=== PATIENT | female | born 1945 | race Caucasian/White ===

== ENCOUNTER 2017-05-28 11:00 | Outpatient (CLI) | payer MEDICARE, BC ==
--- NOTE | 2017-05-28 13:25 | MMO ---
BILATERAL SCREENING MAMMOGRAM: Date: 05/28/17 COMPARISON: 05/09/16, 05/03/15, and 03/17/14. HISTORY: Screening mammography. FINDINGS: This patient's mammogram was interpreted with the assistance of computer-aided detection. There are scattered fibroglandular densities noted bilaterally. There are benign calcifications noted bilaterally. There is a round mass in the upper outer aspect of the left breast measuring in 9-10 mm range, interm ediate depth. This is slightly enlarged when compared to study in 2015 at which time it measured in t he 7-8 mm range. At that time, a benign simple cyst was confirmed with ultrasound. IMPRESSION: BIRADS 2: Benign Finding(s) Annual screening mammography recommended. POS: SONIA
== END 2017-05-28 11:01 | disposition home or self-care (01) ==
LOC: MAMMO 11:00
PROVIDERS: ATTEND Obstetrics & Gynecology
DX: Z12.31 Encounter for screening mammogram for malignant neoplasm of breast (principal)
CPT/HCPCS: 77067; G0202

== ENCOUNTER 2017-09-15 09:03 | Emergency (ER) | payer BC, MEDICARE, OTHER, SELFPAY ==
[2017-09-15] MEDS ORDERED: Ketorolac Tromethamine 30 MG/ML VIAL ONE (10:25)
== END 2017-09-15 10:35 | disposition home or self-care (01) ==
LOC: ERS 09:03
DX: M62.830 Muscle spasm of back (principal); I10 Essential (primary) hypertension; E11.9 Type 2 diabetes mellitus without complications; V89.2XXA Person injured in unspecified motor-vehicle accident, traffic, initial encounter; W22.10XA Striking against or struck by unspecified automobile airbag, initial encounter
CPT/HCPCS: 96372; J1885

== ENCOUNTER 2017-09-16 12:03 | Outpatient (CLI) | payer MEDICARE, BC ==
[~2017-09-16 12:03] MED LIST: Iopamidol 370 76% 100 ML VIAL ONE
== END 2017-09-16 12:04 | disposition home or self-care (01) ==
LOC: BICCT 12:03
PROVIDERS: ATTEND Family Medicine
DX: R10.32 Left lower quadrant pain (principal); R50.9 Fever, unspecified; I70.90 Unspecified atherosclerosis
CPT/HCPCS: 74177

== ENCOUNTER 2018-07-08 10:02 | Outpatient (CLI) | payer MEDICARE, BC ==
--- NOTE | 2018-07-08 11:09 | BD ---
BONE DENSITOMETRY USING DEXA: Date: 07/08/18 HISTORY: Postmenopausal screening for osteoporosis. FINDINGS: Lumbar Spine: BMD (g/cm2) L1 1.062 T-Score: 0.7 Z-Score: 2.6 L2 1.119 T-Score: 0.8 Z-Score: 3.0 L3 1.196 T-Score: 1.0 Z-Score: 3.3 L4 1.137 T-Score: 0.7 Z-Score: 3.1 L1-L4 1.130 T-Score: 0.8 Z-Score: 3.0 Femoral Neck: 0.690 T-Score: -1.4 Z-Score: 0.5 Total Femur: 0.885 T-Score: -0.5 Z-Score: 1.2 The 10 year fracture risk for a major osteoporotic fracture is 9.6% and for a hip fracture is 1.4%. There has been interval reduction of 1.6% in the bone mineral density of the lumbar spine since 01/05. IMPRESSION: Osteopenia. POS: OFF
== END 2018-07-08 10:03 | disposition home or self-care (01) ==
LOC: BICMAMMO 10:02
PROVIDERS: ATTEND Obstetrics & Gynecology
DX: Z12.31 Encounter for screening mammogram for malignant neoplasm of breast (principal); Z13.820 Encounter for screening for osteoporosis; M85.859 Other specified disorders of bone density and structure, unspecified thigh; Z78.0 Asymptomatic menopausal state; Z80.3 Family history of malignant neoplasm of breast
CPT/HCPCS: 77063; 77067; 77080

== ENCOUNTER 2018-07-28 19:30 | Outpatient (CLI) | payer MEDICARE, BC | END 2018-07-28 19:31 | disposition home or self-care (01) | LOC: SLEEPLAB 19:30 | PROVIDERS: ATTEND Family Medicine | DX: G47.33 Obstructive sleep apnea (adult) (pediatric) (principal); R53.83 Other fatigue; R09.89 Other specified symptoms and signs involving the circulatory and respiratory systems; G31.84 Mild cognitive impairment of uncertain or unknown etiology; E11.9 Type 2 diabetes mellitus without complications; R06.83 Snoring; G47.00 Insomnia, unspecified; I10 Essential (primary) hypertension; F41.8 Other specified anxiety disorders; G47.10 Hypersomnia, unspecified; D50.0 Iron deficiency anemia secondary to blood loss (chronic); G47.61 Periodic limb movement disorder; E66.9 Obesity, unspecified; Z68.33 Body mass index [BMI] 33.0-33.9, adult | CPT/HCPCS: 95810 ==

== ENCOUNTER 2019-04-25 16:20 | Outpatient (CLI) | payer MEDICARE, BC ==
--- NOTE | 2019-04-25 16:41 | RAD ---
2 views chest: 04/25/2019 COMPARISON: None HISTORY: Cough FINDINGS: Heart and mediastinal contours appear grossly unremarkable. No pneumothorax or pleural flui d. No focal consolidation or alveolar edema. IMPRESSION: No acute findings.
== END 2019-04-25 16:21 | disposition home or self-care (01) ==
LOC: BICRAD 16:20
PROVIDERS: ATTEND Physician Assistant
DX: R05 Cough (principal)
CPT/HCPCS: 36415; 71046; 80048; 83036

== ENCOUNTER 2019-07-01 12:28 | Outpatient (CLI) | payer MEDICARE, BC ==
--- NOTE | 2019-07-01 13:06 | RAD ---
EXAM: XR Hip Lt 2-3 View PROVIDED CLINICAL HISTORY: Pain status post injury COMPARISON: 08/14/2014 FINDINGS: Postoperative changes of left total hip arthroplasty are demonstrated without evidence for hardware l oosening or migration. No evidence for fracture or other acute osseous abnormality. If there is persistent clinical concern, conservative management and follow-up imaging advised. IMPRESSION: As above.
--- NOTE | 2019-07-01 13:07 | RAD ---
LEFT SHOULDER THREE VIEWS: HISTORY: Fall last evening with shoulder pain. FINDINGS: The AC joint is normally aligned. Degenerative changes at the AC joint are noted with spurring. The h umeral head appears normally positioned. No fracture or acute dislocation identified. IMPRESSION: No acute findings. POS: SONIA
== END 2019-07-01 12:29 | disposition home or self-care (01) ==
LOC: BICRAD 12:28
PROVIDERS: ATTEND Nurse Practitioner Family
DX: M25.512 Pain in left shoulder (principal); M25.552 Pain in left hip; Z96.642 Presence of left artificial hip joint

== ENCOUNTER 2020-06-03 15:08 | Inpatient (IN) | payer MEDICARE, BC ==
[2020-06-03 15:52] LABS: #Basophils 0.1 thou/uL (0.0-0.2); #Eosinphils 0.1 thou/uL (0.0-0.7); #Lymphocytes 1.6 thou/uL (1.20-3.40); #Monocytes 0.7 thou/uL (0.11-0.59); #Neutrophils 5.3 thou/uL (1.40-6.50); %Basophils 0.9 % (0.0-1.0); %Eosinophils 1.2 % (0.0-10.0); %Monocytes 8.5 % (0.0-10.0); %Neutrophils 68.4 % (42.0-75.0); Hemoglobin 13.1 g/dL (12.0-16.0); Mean Corpuscular HGB CONC 34.5 g/dL (32.0-36.0); Mean Corpuscular Hemoglobin 36.1 pg (27.0-31.0); Mean Platelet Volume 8.8 fL (7.4-10.4); Platelet Count 220 thou/uL (130-400); RBC Distribution Width 13.5 % (11.5-14.5); Red Blood Cell (RBC) Count 3.63 mill/uL (4.20-5.40); White Blood Cell (WBC) Count 7.8 thou/uL (4.8-10.8)
--- NOTE | 2020-06-03 15:55 | RAD ---
Portable frontal chest radiograph: 06/03/2020 COMPARISON: 04/25/2019 HISTORY: Weakness, shortness of breath FINDINGS: The cardiac silhouette appears enlarged. No pneumothorax or pleural fluid is seen. There is no focal consolidation or alveolar edema. IMPRESSION: No acute findings.
[2020-06-03 16:11] LABS: MDiff Complete? YES; Macrocytosis SLIGHT = 6-15 cells (100X) (0-5/hpf); Platelet Morphology Comment Appears Adequate; Polychromasia SLIGHT = 2-3 cells (100X) (0-2/hpf)
[2020-06-03 16:17] LABS: ALT (SGPT) 23 U/L (8-55); AST (SGOT) 34 U/L (5-34); Albumin 3.8 g/dL (3.4-4.8); Alkaline Phosphatase 82 U/L (40-110); Anion Gap 18 mmol/L (10-20); BUN (Urea Nitrogen) 17 mg/dL (9.8-20.1); Bilirubin, Total 0.9 mg/dL (0.2-1.2); Calc. Creatinine Clearance 0 mL/min (70-130); Calcium 8.8 mg/dL (7.8-10.44); Carbon Dioxide 23 mmol/L (23-31); Chloride 101 mmol/L (98-107); Estimated GFR-MDRD 33; Globulin 2.6 g/dL (2.4-3.5); Glucose 249 mg/dL (83-110); Potassium 4.3 mmol/L (3.5-5.1); Protein, Total 6.4 g/dL (6.0-8.3); Sodium 138 mmol/L (136-145)
[2020-06-03] MEDS ORDERED: Cyanocobalamin 1000 MCG/ML VIAL IM SCH (19:00)
[2020-06-03] MEDS ORDERED: Magnesium Sulfate 4 GM in Sodium Chloride 0.9% 250 ML 250 ML IVPB SCH (19:15)
[2020-06-03 19:40] LABS: Troponin I 0.015 ng/mL (< 0.028)
--- NOTE | 2020-06-03 20:25 | PDOC.HHP ---
Hospitalist HPI - History of Present Illness SOB History of Present Illness: Patient is a 75-year-old female with paroxysmal atrial fibrillation on anticoagulation, hypertension and congestive heart failure on diuretics presented to the emergency room with worsening shortness of breath over the past 3 weeks. The shortness of breath got worse over the past 24 hours for which she presented to the emergency room. Patient normally follows cardiology Dr. Tim Serna. She recently had an echocardiogram and a stress test which were normal per patient report. She used to be on Lasix 40 mg daily that was reduced to 40 mg alternating with 20 mg daily. The shortness of breath is worse on minimal exertion. She denies significant orthopnea. No cough or wheezing reported. She is unable to complete her activities of daily living due to worsening shortness of breath. Over the past 12 to 24 hours her shortness of breath got worse for which she presented to the emergency room. In the emergency room she was found to have bradycardia with heart rate in 40s. Past Medical History Paroxysmal atrial fibrillation Hypertension - 2001. Type 2 diabetes mellitus without complications - 2001. Shingles. Hypercholesterolemia. Torn ligament in shoulder. Impingement syndrome of right shoulder. DJD (degenerative joint disease) of hip. Urge incontinence. Trochanteric bursitis of left hip. Cervical sprain, initial encounter. Major depressive disorder, single episode, unspecified. Fall on 06/30/2019. Surgical History Appendectomy 1964 D&C 1971 Hysterectomy 1990 Breast biopsy (bilateral) 1970, 1972, 1998 Cataract surgery 2013 Lt. Hip Replacement 08/2014 Lt. 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 Brother - Hypertension., Diabetes, Hypertension Son(s): alive, Younger son - hemochromatosis. Paternal Grand Mother: , Diabetes 1 brother(s) , 1 sister(s) . 2 son(s) - healthy. Social History [employer]: Smoking Are you a: Non-Smoker No Alcohol Use: None No Drugs Use: None Living situation Lives alone. Occupation: Retired. Marital status: . Children: Yes, 2, Boy(s). Caffeine use: 2-3 cups Coffee. Full code. Makes her own decision with the help of her family Allergies N.K.Janette.A. ED Course: VITAL SIGNS Sun Jun 03, 2020 15:09 SEVEN Degroot, Ondina BP: 133/72, Pulse: 90, Resp: 16, Temp: 98.8 (Oral), Pain: 0, O2 sat: 98 on (Room Air), Time: 06/03/2020 15:09. Hospitalist ROS - Review of Systems Constitutional: denies: fever, chills, sweats, weakness, malaise, other Gastrointestinal: denies: nausea, vomiting, abdominal pain, diarrhea, constipation, melena, hematochezia, other Genitourinary: denies: dysuria, frequency, incontinence, hematuria, retention, other All other systems reviewed; all pertinent +/- noted in HPI/Subj - Medication Medications: Current Medications from PCP records-to be verified Joan Aspirin EC Low Dose(Aspirin) 81 MG Tablet Delayed Release 1 tablet Orally Once a day Amlodipine Besylate 10 mg Tablet 1 tablet Orally once a day Triamterene-HCTZ 37.5-25 MG Tablet 1 tablet Orally once a day Atenolol 50 MG Tablet 1 tablet Orally twice a day Ramipril 10 mg Capsule 1 capsule Orally twice a day Insulin Pen Needle 30G X 8 MM Miscellaneous as directed subcutaneously once a day, Notes: may substitute size/gauge based on availability Ferrous Sulfate 324 (65 Fe) MG Tablet Delayed Release 1 tablet Orally Once a day MetFORMIN HCl ER 500 MG Tablet Extended Release 24 Hour 2 tablet with meal Orally twice a day Toujeo SoloStar(Insulin Glargine (1 Unit Dial)) 300 UNIT/ML Solution Pen- injector 20 units Subcutaneous once a day Atorvastatin Calcium 80 MG Tablet 1 tablet Orally Once a day Glimepiride 4 MG Tablet 1 tablet with breakfast or the first main meal of the day Orally Once a day Magnesium 250 MG Tablet 1 tablet with a meal Orally Once a day Allergies No Known Allergies Allergy (Verified 08/08/14 12:57) - Exam General Appearance: NAD (Addressed), awake alert Eye: PERRL ENT: normocephalic atraumatic, no oropharyngeal lesions Neck: supple, symmetric, no JVD, no thyromegaly Heart: RRR, no gallops Respiratory: CTAB, normal chest expansion, no tachypnea, rales (At bases), rhonchi (Add basis) Gastrointestinal: soft, non-tender, normal bowel sounds, no guarding, no rigidity Extremities: no cyanosis, 1+ LE edema Skin: normal turgor, no lesions Neurological: cranial nerve grossly intact, normal sensation to touch Musculoskeletal: normal tone, normal strength, no muscle wasting Psychiatric: normal affect, A&O x 3 Hospitalist Results - Labs Result Diagrams: 06/03/20 15:34 06/03/20 15:34 Lab results: WBC 7.8 thou/uL (4.8-10.8) 06/03/20 15:34 Hgb 13.1 g/dL (12.0-16.0) 06/03/20 15:34 Hct 37.9 % (36.0-47.0) 06/03/20 15:34 MCV 105.0 fL (78.0-98.0) H 06/03/20 15:34 Plt Count 220 thou/uL (130-400) 06/03/20 15:34 Neutrophils % 68.4 % (42.0-75.0) 06/03/20 15:34 Sodium 138 mmol/L (136-145) 06/03/20 15:34 Potassium 4.3 mmol/L (3.5-5.1) 06/03/20 15:34 Chloride 101 mmol/L (98-107) 06/03/20 15:34 Carbon Dioxide 23 mmol/L (23-31) 06/03/20 15:34 BUN 17 mg/dL (9.8-20.1) 06/03/20 15:34 Creatinine 1.53 mg/dL (0.6-1.1) H 06/03/20 15:34 Glucose 249 mg/dL (83-110) H 06/03/20 15:34 Calcium 8.8 mg/dL (7.8-10.44) 06/03/20 15:34 Total Bilirubin 0.9 mg/dL (0.2-1.2) 06/03/20 15:34 AST 34 U/L (5-34) 06/03/20 15:34 ALT 23 U/L (8-55) 06/03/20 15:34 Alkaline Phosphatase 82 U/L (40-110) 06/03/20 15:34 Troponin I 0.015 ng/mL (< 0.028) 06/03/20 19:01 B-Natriuretic Peptide 163.4 pg/mL (0-100) H 06/03/20 15:34 Serum Total Protein 6.4 g/dL (6.0-8.3) 06/03/20 15:34 Albumin 3.8 g/dL (3.4-4.8) 06/03/20 15:34 Abnormal Lab Results - Last 48 hrs 06/03/20 15:34: B-Natriuretic Peptide 163.4 H 06/03/20 15:34: RBC 3.63 L, MCV 105.0 H, MCH 36.1 H, Monocytes # 0.7 H 06/03/20 15:34: Creatinine 1.53 H 06/03/20 15:34: Magnesium 1.4 L Laboratory Tests 04/12/20 06/01/20 14:30 08:56 Vitamin B12 Less than 109 L TSH 3rd Generation 1.6082 - EKG Interpretation EKG: Sinus bradycardia with nonspecific ST-T wave changesreviewed by me - Radiology Interpretation Chest x-ray Status: image reviewed by me Additional Comment: Negative for infiltrate or significant edema Hospitalist H&P A/P - Plan Plan: Shortness of breath suspected due to congestive heart failure exacerbation Paroxysmal atrial fibrillation in sinus rhythm Sinus bradycardia probably due to atenolol/Multaq Hypomagnesemia Recent negative stress test per patient report Severe vitamin B12 deficiency on the labs from 06/01 CKD stage III Hypertension Diabetes mellitus type 2 on oral hypoglycemics Plan: Patient will be monitored in the telemetry unit. Serial troponins will be obtained. Will resume home dose of aspirin along with Eliquis. Will reduce atenolol to 25 mg daily. Continue Multaq. Will replace magnesium. Monitor renal function closely. Gentle diuretics with IV Lasix. Add fluid restriction. Cardiology consultation. Will keep her n.p.o. past midnight for cardiology evaluation. Replace vitamin B12. Patient was counseled on congestive heart failure.
[2020-06-03] MEDS ORDERED: Senokot S 8.6-50 MG TAB PO PRN (20:56)
[2020-06-03] MEDS ORDERED: Calcium Carbonate 500 MG ChewTAB PO PRN (20:56)
[2020-06-03] MEDS ORDERED: Enalaprilat Dihydrate 1.25 MG/ML VIAL SLOW IVP PRN (20:59)
[2020-06-03] MEDS ORDERED: Insulin Regular 300 UNITS/3 ML VIAL SC PRN (21:05)
[2020-06-03] MEDS ORDERED: Dextrose 5% in Water 1,000 ML IV PRN (21:05)
[2020-06-03] MEDS ORDERED: Dextrose 50% Abboject 50 ML SYRINGE SLOW IVP PRN (21:05)
[2020-06-03 21:31] VITALS: BMI 36.1
[2020-06-03] MEDS ORDERED: Dronedarone HCl 400 MG TAB PO SCH (22:15)
[2020-06-03] MEDS ORDERED: Furosemide 20 MG/2 ML VIAL SLOW IVP SCH (22:15)
[2020-06-03] MEDS ORDERED: Apixaban 5 MG TAB PO SCH (22:15)
[2020-06-03 23:02] LABS: SARS-CoV-2 MS2 Positive; SARS-CoV-2 N Gene Negative; SARS-CoV-2 S Gene Negative; SARS-CoV-2 by NAA Not Detected (NotDetected); SARS-CoV-2 orf1ab Negative
[2020-06-04] MEDS: Acetaminophen 325 MG TAB PO PRN (03:14)
[2020-06-04 05:03] LABS: Anion Gap 14 mmol/L (10-20); BUN (Urea Nitrogen) 16 mg/dL (9.8-20.1); Calc. Creatinine Clearance 50 mL/min (70-130); Calcium 8.3 mg/dL (7.8-10.44); Carbon Dioxide 24 mmol/L (23-31); Chloride 102 mmol/L (98-107); Estimated GFR-MDRD 39; Glucose 213 mg/dL (83-110); Magnesium 2.3 mg/dL (1.6-2.6); Potassium 3.8 mmol/L (3.5-5.1); Sodium 136 mmol/L (136-145)
[2020-06-04] MEDS: Furosemide 20 MG/2 ML VIAL SLOW IVP SCH ×2 (05:12→14:28)
[2020-06-04] MEDS ORDERED: FLU VACC QS2020-21(65YR UP)/PF 240 MCG/0.7 ML SYRINGE IM ONE (09:00)
[2020-06-04] MEDS ORDERED: Apixaban 5 MG TAB PO SCH (09:00)
[2020-06-04] MEDS ORDERED: Atenolol 50 MG TAB PO SCH (09:00)
[2020-06-04] MEDS ORDERED: Atenolol 25 MG TAB PO SCH (09:00)
[2020-06-04] MEDS: Famotidine 20 MG TAB PO SCH (09:59)
[2020-06-04] MEDS: Dronedarone HCl 400 MG TAB PO SCH ×3 (10:00→20:23)
[2020-06-04] MEDS: Aspirin 81 mg Enteric Coated Tablet PO SCH (10:00)
[2020-06-04] MEDS: Cyanocobalamin (Vitamin B-12) 1,000 MCG TAB PO SCH (10:00)
--- NOTE | 2020-06-04 10:43 | PDOC.HOSPP ---
- Subjective Encounter Date: 06/04/20 Encounter Time: 09:45 Subjective: Patient seen and examined for shortness of breath suspected due to congestive heart failure exacerbation. Feeling better. Still has some dyspnea on exertion. Denies any chest pain, palpitations or syncope. No cough or whe ezing. - Objective Vital Signs & Weight: Vital Signs (12 hours) Temp Pulse Resp BP Pulse Ox 06/04/20 10:00 49 L 06/04/20 07:49 98.0 F 49 L 16 160/72 H 95 06/04/20 04:30 98.3 F 48 L 12 141/65 H 94 L 06/03/20 23:36 49 L 155/70 H Weight Weight 191 lb 6.4 oz I&O: 06/03/20 06/04/20 06/05/20 06:59 06:59 06:59 Intake Total 350 Output Total 500 Balance -150 Result Diagrams: 06/03/20 15:34 06/04/20 03:46 Additional Labs: Accuchecks 06/04/20 06/03/20 06:27 22:02 POC Glucose 121 H 173 H Abnormal Lab Results - Last 48 hrs 06/03/20 15:34: B-Natriuretic Peptide 163.4 H 06/03/20 15:34: RBC 3.63 L, MCV 105.0 H, MCH 36.1 H, Monocytes # 0.7 H 06/03/20 15:34: Creatinine 1.53 H 06/03/20 15:34: Magnesium 1.4 L 06/04/20 03:46: Creatinine 1.34 H Radiology Reviewed by me: Yes (Chest x-raypulmonary vascular) EKG Reviewed by me: Yes (Sinus rhythm on telemetry) Hospitalist ROS - Review of Systems Constitutional: reports: weakness. denies: fever, chills, sweats, malaise, other Gastrointestinal: denies: nausea, vomiting, abdominal pain, diarrhea, constipation, melena, hematochezia, other - Medication Medications: Active Medications Generic Name Dose Route Start Last Admin Trade Name Freq PRN Reason Stop Dose Admin Acetaminophen 650 mg 06/03/20 20:56 06/04/20 03:14 Acetaminophen 325 Mg Tab PO 650 mg Q4H PRN Administration Headache/Fever/Mild Pain (1-3) Apixaban 5 mg 06/04/20 09:00 06/04/20 10:00 Apixaban 5 Mg Tab PO 5 mg BID REDDY Administration Aspirin 81 mg 06/04/20 09:00 06/04/20 10:00 Aspirin 81 Mg Enteric Coated Tablet PO 81 mg DAILY REDDY Administration Atenolol 25 mg 06/04/20 09:00 06/04/20 10:00 Atenolol 25 Mg Tab PO 25 mg DAILY REDDY Administration Cyanocobalamin 1,000 mcg 06/04/20 09:00 06/04/20 10:00 Cyanocobalamin (Vitamin B-12) 1,000 Mcg Tab PO 1,000 mcg DAILY REDDY Administration Dronedarone 400 mg 06/04/20 08:00 06/04/20 10:00 Dronedarone Hcl 400 Mg Tab PO 400 mg BID-WM REDDY Administration Famotidine 20 mg 06/04/20 09:00 06/04/20 09:59 Famotidine 20 Mg Tab PO 20 mg 0900 REDDY Administration Furosemide 20 mg 06/04/20 06:00 06/04/20 05:12 Furosemide 20 Mg/2 Ml Vial SLOW IVP 20 mg 0600,1400 REDDY Administration - Exam General Appearance: NAD Heart: RRR, no gallops, no rubs, normal peripheral pulses Respiratory: no wheezes, no rales, normal chest expansion, rhonchi Gastrointestinal: soft, normal bowel sounds, no guarding, no rigidity Extremities: no cyanosis, no clubbing, 1+ LE edema Neurological: no new deficit Psychiatric: normal affect, A&O x 3 Hosp A/P - Plan Shortness of breath suspected due to congestive heart failure exacerbation Paroxysmal atrial fibrillation in sinus rhythm Sinus bradycardia probably due to atenolol/Multaq Hypomagnesemia Recent negative stress test per patient report Severe vitamin B12 deficiency on the labs from 06/01 CKD stage III Hypertension Diabetes mellitus type 2 on oral hypoglycemics Plan: Await cardiology input. Continue IV Lasix twice daily. Continue low-dose of atenolol along with Multaq. Continue Eliquis. Magnesium replaced. Continue vitamin B12 supplementation. Cardiac rehab. Patient was extensively counseled on congestive heart failure with importance of on fluid/salt restriction and checking weight every day.
[2020-06-04 12:39] LABS: Troponin I Less than 0.010 ng/mL (< 0.028)
[2020-06-04 16:42] LABS: Bacteria/HPF None Seen HPF (None Seen); Bilirubin Negative (Negative); Blood, Urine Negative (Negative); Clarity Clear (Clear); Glucose, Urine (Dipstick) Normal (Negative); Ketone, Urine Negative (Negative); Leukocyte Negative Leu/uL (Negative); Nitrite Negative (Negative); Protein, Urine (Dipstick) Negative (Neg-Trace); RBC/HPF 0-3 HPF (0-3); Specific Gravity, Urine 1.007 (1.002-1.036); Squamous Epithelial 0-3 HPF (0-3); Urobilinogen Normal mg/dL (Less than 2); WBC/HPF None Seen HPF (0-3)
[2020-06-04 16:44] LABS: Urine Culture Reflex No No
[2020-06-04] MEDS: hydrALAZINE 25 MG TAB PO SCH (20:23)
--- NOTE | 2020-06-04 23:10 | CON ---
DATE OF CONSULTATION: HISTORY OF PRESENT ILLNESS: Zahra Orellana is a 75-year-old white female, whom I initially evaluated in March 2020, being referred by Dr. Melvin Whitley for evaluation of palpitations. She also needed cardiac clearance for left shoulder surgery with Dr. Krishnan. Two months prior to that evaluation, she stated that she would feel her heart beating very fast when she would get up in the morning and would last to approximately noon. She also started to notice pedal edema for 3 months and was placed on furosemide. A 30-day monitor was placed. On the monitor, she was found to have episodes of paroxysmal atrial fibrillation with heart rate of 160 per minute and was placed on Eliquis 5 mg b.i.d. and Multaq 400 b.i.d. Since that time, she states she has not had many problems with palpitations. At that time, she was on atenolol 50 mg b.i.d. and her heart rate was 44 per minute in April 2020 and this was reduced to atenolol 50 mg daily. Also echocardiogram revealed mild left ventricular hypertrophy, ejection fraction of 55% to 60%, evidence for diastolic dysfunction, mild left atrial enlargement, aortic valve sclerosis, mild mitral regurgitation, and mild tricuspid regurgitation. She also underwent cardiac PET scan, which revealed no evidence of ischemia. She was seen again on May 22, 2020, complaining of some dyspnea on exertion and Lasix had been increased to 40 mg daily, but she did not notice any improvement in her peripheral edema. She is on maximum dose amlodipine. Her heart rate was still 48 per minute and atenolol was reduced further to 25 mg daily, hydralazine was increased. She was somewhat anemic and vitamin B12 was less than 109, folic acid was normal. She now presents to the emergency room complaining of increased shortness of breath over the last three weeks. With any physical exertion, she will become dyspneic. She denies any chest discomfort. She does have peripheral edema at times. Her admission EKG revealed sinus bradycardia with heart rate of 49 per minute. PAST MEDICAL HISTORY: Hypertension, hypercholesterolemia, diabetes, and paroxysmal atrial fibrillation. OPERATIONS: Removal of benign cyst from both breast and cataract surgery. SOCIAL HISTORY: She does not smoke or drink. MEDICATIONS: 1. Atenolol 25 mg daily. 2. Amlodipine 10 at bedtime. 3. Eliquis 5 mg b.i.d. 4. Atorvastatin 80 daily. 5. Multaq 400 b.i.d. 6. Ferrous sulfate 325 daily. 7. Furosemide 40 daily. 8. Amaryl daily. 9. Hydralazine 50 mg t.i.d. 10. Metformin 500 b.i.d. 11. Ramipril 10 b.i.d. PHYSICAL EXAMINATION: VITAL SIGNS: Blood pressure 159/67, pulse of 59. HEENT: PERRL. NECK: Supple. CHEST: Clear. CARDIAC: S1 and S2 normal without any S3, S4, or murmurs. ABDOMEN: Normal bowel sounds without tenderness or organomegaly. ABDOMEN: Obese. EXTREMITIES: Revealed no clubbing, cyanosis. There is 1+ edema. NEUROLOGICAL: Grossly intact. SKIN: Warm and dry. LABORATORY DATA: EKG revealed sinus bradycardia with nonspecific T-wave changes. Hemoglobin 13.1, hematocrit 37.9, white count 7800, platelets 220,000. Sodium 136, potassium 3.8, chloride 102, carbon dioxide 24, BUN 16, and creatinine 1.34. Cardiac enzymes are unremarkable. IMPRESSION: 1. Exertional dyspnea, which certainly may be due to her severe bradycardia. Her atenolol dose has been gradually reduced from 100 down to 25 mg daily. 2. Sick sinus syndrome with severe sinus bradycardia as well as paroxysmal atrial fibrillation. 3. Paroxysmal atrial fibrillation with rate in the 160s, seen on a 30-day monitor. Multaq was then started. These episodes seem to have started in about January 2020. 4. Hypercholesterolemia. 5. Hypertension. 6. Normal cardiac PET scan. 7. Diabetes. 8. Venous insufficiency. 9. Acute kidney injury-possibly due to decreased cardiac output from low heart rate and very high dose FAVIO inhibitor and furosemide. PLAN: The patient is on extremely high dose ramipril and that will be held for now with her renal insufficiency. Atenolol will be discontinued with her significant bradycardia. Also, Eliquis will be discontinued for now since she certainly may need to have pacemaker placed. Risks of pacemaker placement were discussed with the patient and her son including , infection, bleeding, blood clot formation, reoperation, pneumothorax, cardiac tamponade with surgical drainage, etc. We will see her response to stopping the atenolol. Also provides a diagnosis of vitamin B12 deficiency. Consideration also will be given to discontinuation of the amlodipine because of peripheral edema. Job ID: [id number] [facility]
[2020-06-05 04:32] LABS: Anion Gap 14 mmol/L (10-20); BUN (Urea Nitrogen) 19 mg/dL (9.8-20.1); Calc. Creatinine Clearance 55 mL/min (70-130); Calcium 8.6 mg/dL (7.8-10.44); Carbon Dioxide 27 mmol/L (23-31); Chloride 103 mmol/L (98-107); Estimated GFR-MDRD 43; Glucose 116 mg/dL (83-110); Magnesium 1.8 mg/dL (1.6-2.6); Potassium 3.7 mmol/L (3.5-5.1); Sodium 140 mmol/L (136-145)
[2020-06-05] MEDS: Furosemide 20 MG/2 ML VIAL SLOW IVP SCH ×2 (06:38→14:52)
[2020-06-05] MEDS: Dronedarone HCl 400 MG TAB PO SCH ×2 (08:59→18:36)
[2020-06-05] MEDS: Famotidine 20 MG TAB PO SCH (08:59)
[2020-06-05] MEDS: Aspirin 81 mg Enteric Coated Tablet PO SCH ×2 (08:59→09:06)
[2020-06-05] MEDS: Cyanocobalamin (Vitamin B-12) 1,000 MCG TAB PO SCH (09:00)
[2020-06-05] MEDS ORDERED: Magnesium 2 GM/50 ML 2 GM in Premix Bag 1 BAG IVPB SCH (09:00)
[2020-06-05] MEDS: hydrALAZINE 25 MG TAB PO SCH ×3 (09:00→21:41)
[2020-06-05] MEDS: Acetaminophen 325 MG TAB PO PRN (09:00)
[2020-06-05] MEDS: Insulin Regular 300 UNITS/3 ML VIAL SC PRN ×2 (11:23→18:19)
--- NOTE | 2020-06-05 12:54 | PDOC.HOSPP ---
- Subjective Encounter Date: 06/05/20 Encounter Time: 09:30 Subjective: Patient seen and examined for congestive heart failure exacerbation with symptomatic bradycardia. Denies any chest pain. Shortness of breath improving. No palpitations, syncope, fever or chills reported - Objective Vital Signs & Weight: Vital Signs (12 hours) Temp Pulse Pulse Pulse Resp BP BP 06/05/20 10:28 50 L 51 L 131/63 148/62 H 06/05/20 09:00 45 L 06/05/20 07:39 06/05/20 07:36 98.5 F 45 L 17 06/05/20 03:27 98.8 F 46 L 20 BP Pulse Ox 06/05/20 10:28 06/05/20 09:00 06/05/20 07:39 95 06/05/20 07:36 152/67 H 94 L 06/05/20 03:27 143/81 H 95 Weight Weight 193 lb 11.2 oz I&O: 06/04/20 06/05/20 06/06/20 06:59 06:59 06:59 Intake Total 350 3350 Output Total 500 2300 Balance -150 1050 Result Diagrams: 06/03/20 15:34 06/05/20 03:36 Additional Labs: Accuchecks 06/05/20 06/05/20 06/04/20 10:48 07:25 20:53 POC Glucose 225 H 148 H 186 H 06/04/20 16:30 POC Glucose 165 H EKG Reviewed by me: Yes (Sinus bradycardia on telemetry) Hospitalist ROS - Review of Systems Cardiovascular: denies: chest pain, palpitations, orthopnea, paroxysmal noc. dyspnea, edema, light headedness, other Gastrointestinal: denies: nausea, vomiting, abdominal pain, diarrhea, constipation, melena, hematochezia, other - Medication Medications: Active Medications Generic Name Dose Route Start Last Admin Trade Name Freq PRN Reason Stop Dose Admin Acetaminophen 650 mg 06/03/20 20:56 06/05/20 09:00 Acetaminophen 325 Mg Tab PO 650 mg Q4H PRN Administration Headache/Fever/Mild Pain (1-3) Aspirin 81 mg 06/04/20 09:00 06/05/20 09:06 Aspirin 81 Mg Enteric Coated Tablet PO Not Given DAILY [facility] Cyanocobalamin 1,000 mcg 06/04/20 09:00 06/05/20 09:00 Cyanocobalamin (Vitamin B-12) 1,000 Mcg Tab PO 1,000 mcg DAILY REDDY Administration Dronedarone 400 mg 06/04/20 08:00 06/05/20 08:59 Dronedarone Hcl 400 Mg Tab PO 400 mg BID-WM REDDY Administration Famotidine 20 mg 06/04/20 09:00 06/05/20 08:59 Famotidine 20 Mg Tab PO 20 mg 0900 REDDY Administration Furosemide 20 mg 06/04/20 06:00 06/05/20 06:38 Furosemide 20 Mg/2 Ml Vial SLOW IVP 20 mg 0600,1400 REDDY Administration Hydralazine HCl 50 mg 06/04/20 21:00 06/05/20 09:00 Hydralazine 25 Mg Tab PO 50 mg TID REDDY Administration Insulin Human Regular 0 units 06/03/20 21:05 06/05/20 11:23 Insulin Regular 300 Units/3 Ml Vial SC 4 unit .MILD SLIDING SCALE PRN Administration Mild Correctional Scale - Exam General Appearance: NAD Heart: RRR, no gallops Respiratory: no wheezes, no rales, rhonchi Gastrointestinal: non-tender, normal bowel sounds Extremities: no cyanosis, 1+ LE edema Neurological: no focal deficits Hosp A/P - Plan Shortness of breath suspected due to congestive heart failure exacerbation Paroxysmal atrial fibrillation in sinus rhythm Sinus bradycardia probably due to atenolol/Multaq Hypomagnesemia YOCASTA on CKD stage IIIPOA Recent negative stress test per patient report Severe vitamin B12 deficiency on the labs from 06/01 CKD stage III Hypertension Diabetes mellitus type 2 on oral hypoglycemics Plan: Replace magnesium. Eliquis on hold for pacemaker placement in a.m. cardiology input appreciated. Continue Multaq. Atenolol discontinued. Continue IV Lasix. Hydralazine added for blood pressure control. Recheck basic metabolic profile in a.m. renal function improving.
[2020-06-06 05:31] LABS: Anion Gap 14 mmol/L (10-20); BUN (Urea Nitrogen) 24 mg/dL (9.8-20.1); Calc. Creatinine Clearance 55 mL/min (70-130); Calcium 8.6 mg/dL (7.8-10.44); Carbon Dioxide 27 mmol/L (23-31); Chloride 103 mmol/L (98-107); Estimated GFR-MDRD 42; Glucose 167 mg/dL (83-110); Potassium 3.7 mmol/L (3.5-5.1); Sodium 140 mmol/L (136-145)
[2020-06-06] MEDS: Furosemide 20 MG/2 ML VIAL SLOW IVP SCH (05:47)
[2020-06-06] MEDS ORDERED: Midazolam HCl 2 mg/2 ml Vial ONE ×2 (06:36→07:33)
[2020-06-06] MEDS ORDERED: CEFAZOLIN 1 GM VIAL ONE (06:37)
[2020-06-06] MEDS ORDERED: Fentanyl 100 MCG/2 ML VIAL ONE (06:37)
[2020-06-06] MEDS ORDERED: Lidocaine 1% (PF) 30 ML VIAL ONE ×3 (06:37→07:25)
[2020-06-06] MEDS ORDERED: Gentamicin 80 MG/2 ML VIAL ONE (06:37)
[2020-06-06] MEDS ORDERED: Carvedilol 6.25 MG TAB PO SCH (08:30)
[2020-06-06] MEDS ORDERED: Furosemide 40 MG TAB PO SCH (09:00)
--- NOTE | 2020-06-06 09:15 | RAD ---
RADIOGRAPH CHEST 1 VIEW: DATE: 06/06/2020 9:04 AM HISTORY: 75-year-old female status post pacemaker placement. COMPARISON: 06/03/2020 FINDINGS: There are no airspace densities, pulmonary edema, pneumothorax, or cardiomegaly. The lateral costophr enic angles are sharp. There is a new dual-lead transvenous permanent pacemaker with lead tips overlying expected locations of right atrial appendage and right ventricle, with left-sided generator. IMPRESSION: 1. Interval placement of permanent pacemaker without pneumothorax. 2. No acute cardiopulmonary findings.
[2020-06-06] MEDS: Acetaminophen 325 MG TAB PO PRN ×2 (10:03→20:53)
[2020-06-06] MEDS: Aspirin 81 mg Enteric Coated Tablet PO SCH (10:05)
[2020-06-06] MEDS: Dronedarone HCl 400 MG TAB PO SCH ×2 (10:05→17:46)
[2020-06-06] MEDS: Cephalexin 250 MG CAP PO SCH ×3 (10:06→20:53)
[2020-06-06] MEDS: Cyanocobalamin (Vitamin B-12) 1,000 MCG TAB PO SCH (10:06)
[2020-06-06] MEDS: Carvedilol 6.25 MG TAB PO SCH ×2 (10:06→17:46)
[2020-06-06] MEDS: Famotidine 20 MG TAB PO SCH (10:06)
[2020-06-06] MEDS: Furosemide 40 MG TAB PO SCH (10:06)
[2020-06-06] MEDS: Insulin Regular 300 UNITS/3 ML VIAL SC PRN (17:47)
--- NOTE | 2020-06-06 19:17 | PDOC.HOSPP ---
- Subjective Encounter Date: 06/06/20 Encounter Time: 09:30 Subjective: Patient seen and examined for shortness of breath/CHF with bradycardia. Underwent pacemaker placement. Denies any chest pain, palpitations or syncope. - Objective Vital Signs & Weight: Vital Signs (12 hours) Temp Pulse Resp BP BP Pulse Ox 06/06/20 17:46 155/72 H 06/06/20 16:34 98.7 F 60 16 137/65 95 06/06/20 12:00 98.6 F 60 14 116/57 L 93 L 06/06/20 10:14 155/72 H 06/06/20 10:06 155/72 H 06/06/20 09:45 98.6 F 61 16 173/73 H 95 06/06/20 08:06 96 Weight Weight 194 lb 2 oz I&O: 06/05/20 06/06/20 06/07/20 06:59 06:59 06:59 Intake Total 3350 1360 480 Output Total 2300 2100 750 Balance 3550 -550 270 Result Diagrams: 06/03/20 15:34 06/06/20 04:18 Additional Labs: Accuchecks 06/06/20 06/06/20 06/05/20 10:37 06:50 21:05 POC Glucose 271 H 123 H 190 H EKG Reviewed by me: Yes (Paced rhythm) Hospitalist ROS - Review of Systems Cardiovascular: denies: chest pain, palpitations, orthopnea, paroxysmal noc. dyspnea, edema, light headedness, other Gastrointestinal: denies: nausea, vomiting, abdominal pain, diarrhea, co nstipation, melena, hematochezia, other - Medication Medications: Active Medications Generic Name Dose Route Start Last Admin Trade Name Freq PRN Reason Stop Dose Admin Acetaminophen 650 mg 06/03/20 20:56 06/06/20 10:03 Acetaminophen 325 Mg Tab PO 650 mg Q4H PRN Administration Headache/Fever/Mild Pain (1-3) Aspirin 81 mg 06/04/20 09:00 06/06/20 10:05 Aspirin 81 Mg Enteric Coated Tablet PO 81 mg DAILY REDDY Administration Carvedilol 12.5 mg 06/06/20 17:00 06/06/20 17:46 Carvedilol 6.25 Mg Tab PO 12.5 mg BID- REDDY Administration Cephalexin 250 mg 06/06/20 09:00 06/06/20 15:23 Cephalexin 250 Mg Cap PO 06/16/20 09:01 250 mg TID REDDY Administration Cyanocobalamin 1,000 mcg 06/04/20 09:00 06/06/20 10:06 Cyanocobalamin (Vitamin B-12) 1,000 Mcg Tab PO 1,000 mcg DAILY REDDY Administration Dronedarone 400 mg 06/04/20 08:00 06/06/20 17:46 Dronedarone Hcl 400 Mg Tab PO 400 mg BID-WM REDDY Administration Famotidine 20 mg 06/04/20 09:00 06/06/20 10:06 Famotidine 20 Mg Tab PO 20 mg 0900 REDDY Administration Furosemide 40 mg 06/07/20 07:30 06/06/20 10:06 Furosemide 40 Mg Tab PO 40 mg DAILY-AC REDDY Administration Insulin Human Regular 0 units 06/03/20 21:05 06/06/20 17:47 Insulin Regular 300 Units/3 Ml Vial SC 2 unit .MILD SLIDING SCALE PRN Administration Mild Correctional Scale - Exam General Appearance: NAD Heart: RRR, no gallops Respiratory: no wheezes, no ronchi Gastrointestinal: soft, non-distended Extremities: no cyanosis, no edema Neurological: no new deficit Hosp A/P - Plan DVT proph w/SCDs Shortness of breath suspected due to congestive heart failure exacerbation Paroxysmal atrial fibrillation in sinus rhythm Sinus bradycardia probably due to atenolol/Multaq Hypomagnesemia YOCASTA on CKD stage IIIPOA Recent negative stress test per patient report Severe vitamin B12 deficiency on the labs from 06/01 CKD stage III Hypertension Diabetes mellitus type 2 on oral hypoglycemics Plan: Status post pacemaker. Continue Multaq. Patient started on carvedilol. Keflex for prophylaxis. Lasix changed to oral. Hydralazine discontinued. Continue other as needed medications. DC home once cleared by cardiology. Resume anticoagulation once okay with cardiology. Consult pillowcase cleaner for home health care evaluation
[2020-06-07 04:55] LABS: #Basophils 0.1 thou/uL (0.0-0.2); #Eosinphils 0.4 thou/uL (0.0-0.7); #Lymphocytes 1.7 thou/uL (1.20-3.40); #Monocytes 0.6 thou/uL (0.11-0.59); #Neutrophils 3.2 thou/uL (1.40-6.50); %Basophils 1.2 % (0.0-1.0); %Eosinophils 6.6 % (0.0-10.0); %Monocytes 10.4 % (0.0-10.0); %Neutrophils 53.7 % (42.0-75.0); Hemoglobin 11.8 g/dL (12.0-16.0); Mean Corpuscular HGB CONC 33.8 g/dL (32.0-36.0); Mean Corpuscular Hemoglobin 35.3 pg (27.0-31.0); Mean Platelet Volume 8.8 fL (7.4-10.4); Platelet Count 168 thou/uL (130-400); RBC Distribution Width 13.5 % (11.5-14.5); Red Blood Cell (RBC) Count 3.33 mill/uL (4.20-5.40)
[2020-06-07 05:14] LABS: Anion Gap 13 mmol/L (10-20); BUN (Urea Nitrogen) 21 mg/dL (9.8-20.1); Calc. Creatinine Clearance 55 mL/min (70-130); Calcium 8.7 mg/dL (7.8-10.44); Carbon Dioxide 30 mmol/L (23-31); Chloride 103 mmol/L (98-107); Estimated GFR-MDRD 41; Glucose 131 mg/dL (83-110); Sodium 142 mmol/L (136-145)
[2020-06-07] MEDS: Famotidine 20 MG TAB PO SCH (08:50)
[2020-06-07] MEDS: Cephalexin 250 MG CAP PO SCH ×3 (08:50→20:22)
[2020-06-07] MEDS: Carvedilol 6.25 MG TAB PO SCH (08:50)
[2020-06-07] MEDS: Cyanocobalamin (Vitamin B-12) 1,000 MCG TAB PO SCH (08:50)
[2020-06-07] MEDS: Aspirin 81 mg Enteric Coated Tablet PO SCH (08:50)
[2020-06-07] MEDS: Furosemide 40 MG TAB PO SCH (08:50)
[2020-06-07] MEDS: Dronedarone HCl 400 MG TAB PO SCH ×2 (11:21→18:22)
--- NOTE | 2020-06-07 12:48 | PDOC.HOSPP ---
- Subjective Encounter Date: 06/07/20 Encounter Time: 09:30 Subjective: Patient seen and examined for congestive heart failure with bradycardia. Underwent pacemaker placement yesterday. Feels lightheaded and dizzy. Denies any chest pain or worsening shortness of breath. No fever or chills reported. - Objective Vital Signs & Weight: Vital Signs (12 hours) Temp Pulse Pulse Pulse Resp BP BP 06/07/20 11:25 62 61 154/71 H 06/07/20 11:17 97.8 F 60 16 06/07/20 08:51 185/86 H 06/07/20 08:50 185/86 H 06/07/20 08:35 98.0 F 60 17 06/07/20 05:00 97.8 F 60 BP BP Pulse Ox 06/07/20 11:25 123/61 06/07/20 11:17 143/65 H 99 06/07/20 08:51 06/07/20 08:50 06/07/20 08:35 185/86 H 98 06/07/20 05:00 154/68 H 96 Weight Weight 198 lb 14.4 oz I&O: 06/06/20 06/07/20 06/08/20 06:59 06:59 06:59 Intake Total 1360 720 Output Total 2100 750 Balance -740 -30 Result Diagrams: 06/07/20 04:15 06/07/20 04:15 Additional Labs: Accuchecks 06/07/20 06/06/20 05:18 20:31 POC Glucose 148 H 152 H Abnormal Lab Results - Last 48 hrs 06/06/20 04:18: BUN 24 H, Creatinine 1.25 H 06/07/20 04:15: RBC 3.33 L, Hgb 11.8 L, Hct 34.8 L, MCV 105.0 H, MCH 35.3 H, Monocytes % 10.4 H, Basophils % 1.2 H, Monocytes # 0.6 H 06/07/20 04:15: BUN 21 H, Creatinine 1.28 H EKG Reviewed by me: Yes (Paced rhythm) Hospitalist ROS - Review of Systems Cardiovascular: reports: light headedness. denies: chest pain, palpitations, orthopnea, paroxysmal noc. dyspnea, edema, other Gastrointestinal: denies: nausea, vomiting, abdominal pain, diarrhea, constipation, melena, hematochezia, other - Medication Medications: Active Medications Generic Name Dose Route Start Last Admin Trade Name Luisq PRN Reason Stop Dose Admin Acetaminophen 650 mg 06/03/20 20:56 06/06/20 20:53 Acetaminophen 325 Mg Tab PO 650 mg Q4H PRN Administration Headache/Fever/Mild Pain (1-3) Aspirin 81 mg 06/04/20 09:00 06/07/20 08:50 Aspirin 81 Mg Enteric Coated Tablet PO 81 mg DAILY REDDY Administration Cephalexin 250 mg 06/06/20 09:00 06/07/20 08:50 Cephalexin 250 Mg Cap PO 06/16/20 09:01 250 mg TID REDDY Administration Cyanocobalamin 1,000 mcg 06/04/20 09:00 06/07/20 08:50 Cyanocobalamin (Vitamin B-12) 1,000 Mcg Tab PO 1,000 mcg DAILY REDDY Administration Dronedarone 400 mg 06/04/20 08:00 06/07/20 11:21 Dronedarone Hcl 400 Mg Tab PO 400 mg BID-WM REDDY Administration Enalaprilat 1.25 mg 06/03/20 20:59 06/07/20 08:51 Enalaprilat Dihydrate 1.25 Mg/Ml Vial SLOW IVP 1.25 mg Q6HR PRN Administration SBP Greater Than 180 Famotidine 20 mg 06/04/20 09:00 06/07/20 08:50 Famotidine 20 Mg Tab PO 20 mg 0900 REDDY Administration Furosemide 40 mg 06/07/20 07:30 06/07/20 08:50 Furosemide 40 Mg Tab PO 40 mg DAILY-AC REDDY Administration Insulin Human Regular 0 units 06/03/20 21:05 06/06/20 17:47 Insulin Regular 300 Units/3 Ml Vial SC 2 unit .MILD SLIDING SCALE PRN Administration Mild Correctional Scale - Exam General Appearance: NAD Heart: RRR, no gallops Respiratory: no wheezes, no ronchi Gastrointestinal: soft, non-distended Extremities: no cyanosis, no clubbing Neurological: no new deficit Hosp A/P - Plan DVT proph w/SCDs Shortness of breath suspected due to congestive heart failure exacerbation Paroxysmal atrial fibrillation in sinus rhythm Sinus bradycardia probably due to atenolol/Multaq Hypomagnesemia YOCASTA on CKD stage IIIPOA Recent negative stress test per patient report Severe vitamin B12 deficiency on the labs from 06/01 CKD stage III Hypertension Diabetes mellitus type 2 on oral hypoglycemics Plan: Blood pressure still uncontrolled. Systolic blood pressure at this morning was in 180s. Carvedilol dose increased to 25 mg twice daily. Continue Lasix 40 mg daily. Hydralazine restarted at 50 mg 3 times a day. Continue as needed antihypertensives. Continue Keflex. Continue low-dose aspirin. Antic oagulation on hold due to recent pacemaker placement. Recheck basic metabolic profile in a.m. Continue other medications as above. Home health care at discharge.
[2020-06-07] MEDS: Insulin Regular 300 UNITS/3 ML VIAL SC PRN ×2 (13:23→17:33)
[2020-06-07] MEDS: hydrALAZINE 25 MG TAB PO SCH ×2 (16:17→20:26)
[2020-06-07] MEDS: Carvedilol 25 MG TAB PO SCH (17:33)
[2020-06-07] MEDS: Acetaminophen 325 MG TAB PO PRN (22:35)
[2020-06-08 05:00] LABS: Anion Gap 11 mmol/L (10-20); BUN (Urea Nitrogen) 22 mg/dL (9.8-20.1); Calc. Creatinine Clearance 57 mL/min (70-130); Calcium 8.4 mg/dL (7.8-10.44); Carbon Dioxide 30 mmol/L (23-31); Chloride 101 mmol/L (98-107); Estimated GFR-MDRD 43; Glucose 223 mg/dL (83-110); Magnesium 1.7 mg/dL (1.6-2.6); Potassium 3.7 mmol/L (3.5-5.1); Sodium 138 mmol/L (136-145)
[2020-06-08] MEDS ORDERED: Magnesium Sulfate 3 GM in Sodium Chloride 0.9% 100 ML IVPB SCH (08:00)
[2020-06-08] MEDS: Cephalexin 250 MG CAP PO SCH (08:35)
[2020-06-08] MEDS: hydrALAZINE 25 MG TAB PO SCH (08:35)
[2020-06-08] MEDS: Famotidine 20 MG TAB PO SCH (08:35)
[2020-06-08] MEDS: Dronedarone HCl 400 MG TAB PO SCH (08:36)
[2020-06-08] MEDS: Aspirin 81 mg Enteric Coated Tablet PO SCH (08:36)
[2020-06-08] MEDS: Cyanocobalamin (Vitamin B-12) 1,000 MCG TAB PO SCH (08:36)
[2020-06-08] MEDS: Furosemide 40 MG TAB PO SCH (08:36)
[2020-06-08] MEDS: Carvedilol 25 MG TAB PO SCH (08:36)
[2020-06-08 11:35] VITALS: BP 153/70; TEMP 97.6
[2020-06-08] MEDS: Insulin Regular 300 UNITS/3 ML VIAL SC PRN (11:37)
--- NOTE | 2020-06-08 13:56 | PDOC.DS.DS ---
Provider - Provider Date of Admission: 06/04/20 13:19 Date of Discharge: 06/08/20 Admitting Provider: Yossi Duong MD Consultations: Cardiology Primary Care Physician: Melvin Whitley DO Course - Hospital Course Hospital Course: Patient is a 75-year-old female with paroxysmal atrial fibrillation on anticoagulation, hypertension and congestive heart failure presented to the emergency room with shortness of breath on 06/03. Please refer to the history and physical for further details. The patient was admitted to the hospital with a diagnosis of shortness of breath secondary to severe bradycardia/sick sinus syndrome. She was found to have par oxysmal atrial fibrillation with heart rate in 160s on a 30-day monitor as outpatient. She also takes Multaq twice a day at home. Patient was evaluated by cardiology Dr. Tim Serna. Patient underwent pacemaker placement on 06/04. Anticoagulation was held due to above. Patient will restart anticoagulation tonight. Atenolol, ramipril and amlodipine have been discontinued. Hydralazine dose has been reduced to 50 mg 3 times a day. Patient has been started on carvedilol 25 mg twice daily. Patient was advised to monitor blood pressure on a daily basis and to maintain a log. Patient had recent lab work as outpatient on 06/01 that showed vitamin B12 less than 109. She received 1 intramuscular injection of 1000 mcg of vitamin B12 and has been started on 1000 mcg p.o. vitamin B12 on the daily basis. Primary care physician advised to follow. Keflex has been also started after pacemaker for infection prophylaxis. Patient has been cleared by cardiology for discharge. Final diagnosis: Shortness of breath suspected due to severe bradycardia/sick sinus sy ndromestatus post pacemaker placement this admission Paroxysmal atrial fibrillation in sinus rhythm Hypomagnesemia YOCASTA on CKD stage III Recent negative stress test per patient report Severe vitamin B12 deficiency on the labs from 06/01 CKD stage III Hypertension Diabetes mellitus type 2 on oral hypoglycemics Resuscitation Status: 06/03/20 20:56 Resuscitation Status Routine Resuscitation Status: FULL: Full Resuscitation - Labs Lab Results: 06/07/20 04:15 06/08/20 04:11 Abnormal Lab Results - Last 48 hrs 06/07/20 04:15: RBC 3.33 L, Hgb 11.8 L, Hct 34.8 L, MCV 105.0 H, MCH 35.3 H, Monocytes % 10.4 H, Basophils % 1.2 H, Monocytes # 0.6 H 06/07/20 04:15: BUN 21 H, Creatinine 1.28 H 06/08/20 04:11: BUN 22 H, Creatinine 1.23 H - Physical Exam Vitals: Vital Signs (12 hours) Temp Pulse Resp BP Pulse Ox 06/08/20 11:31 97.6 F 61 18 153/70 H 98 06/08/20 08:14 98.0 F 60 19 180/79 H 99 06/08/20 03:57 97.3 F L 61 16 157/70 H 94 L Weight Weight 198 lb 1.6 oz Physical Exam: The patient was seen and examined on the day of discharge. Plan - Discharge Medications Prescriptions: Carvedilol [Coreg] 25 mg PO BID-WM #60 tab hydrALAZINE HCl [Hydralazine HCl] 50 mg PO TID #90 tablet Cephalexin [Keflex] 250 mg PO TID #24 cap Cyanocobalamin (Vitamin B-12) [Vitamin B-12] 1,000 mcg PO DAILY #30 tab Home Medications: Medication Instructions Recorded Confirmed Type metFORMIN HCl [metFORMIN HCl ER] 500 mg PO BID 08/08/14 06/03/20 History Apixaban [Eliquis] 1 tab PO BID 06/03/20 06/03/20 History Atorvastatin Calcium [Lipitor] 1 tab PO DAILY 06/03/20 06/03/20 History Dronedarone HCl [Multaq] 1 tab PO BID 06/03/20 06/03/20 History Ferrous Sulfate 1 tab PO DAILY 06/03/20 06/03/20 History Furosemide [Lasix] 1 tab PO DAILY 06/03/20 06/03/20 History Glimepiride [Amaryl] 1 tab PO DAILY 06/03/20 06/03/20 History Acetaminophen [Tylenol Regular 650 mg PO Q4H PRN tab 06/08/20 Rx Strength] Carvedilol [Coreg] 25 mg PO BID-WM #60 tab 06/08/20 Rx Cephalexin [Keflex] 250 mg PO TID #24 cap 06/08/20 Rx Cyanocobalamin (Vitamin B-12) 1,000 mcg PO DAILY #30 tab 06/08/20 Rx [Vitamin B-12] hydrALAZINE HCl [Hydralazine HCl] 50 mg PO TID #90 tablet 06/08/20 Rx Allergies: No Known Allergies Allergy (Verified 08/08/14 12:57) - Discharge Instructions Discharge Instructions:: STOP RAMIPRIL/AMLODIPINE Reduce Hydralazine to 50 mg TID Restart Eliquis tonight - Follow up Plan Referrals: Cardiac Rehab - [facility] [Outside] - 7 Days ( Your doctor has ordered outpatient cardiac rehab for you to begin within 1-2 weeks after you go home from the hospital. The location nearest to you is the [facility]. We will call you in 3-5 days to get you scheduled for your evaluation. If you do not receive a call, please reach out to us at [phone] and request an appointment.) [facility] [Outside] (half-way, Heart failure management, and phyiscal therapy services.) Tim Serna MD [Active] - 14 Days (Please call the office to schedule a site check for your pacemaker in 2 weeks. Please also continue to follow up with Dr. Serna.) Melvin Whitley DO [Primary Care Provider] - 7 Days (PLEASE CALL AND SCHEDULE A FOLLOW UP APPOINTMENT. ) Disposition: HOME HEALTH Quality - Care Measures CORE MEASURES:: N/A
[2020-06-08] MEDS ORDERED: Apixaban 5 MG TAB PO SCH (21:00)
--- NOTE | 2020-06-12 00:29 | PQF ---
CLINICAL DOCUMENTATION CLARIFICATION FORM: Dear : CAM ALARCON MD Date / Time: 06/12/2020 Please exercise your independent, professional judgment in responding to the clarification form. Clinical indicators are provided on the bottom of this form for your review Please check appropriate box(es): HEART FAILURE: A. ACUITY [ ] Acute [ x ] Acute on Chronic [ ] Chronic B. TYPE: [ ] Systolic / HFrEF [x ] Diastolic / HFpEF [ ] Combined Systolic / Diastolic [ ] Hypertensive Heart and Kidney disease [ ] Hypertensive Heart Disease [ ] Hypertensive Kidney Disease [ ] Other diagnosis (Please specify if any) [ ] Unable to determine In addition, please specify: Present on Admission (POA): [ x] Yes [ ] No [ ] Unable to determine Physician Signature: Date/Time: For continuity of documentation, please document condition throughout progress notes and discharge summary. Thank You. To be completed by CDI/Coding staff for physician review: Present Clinical Indicators - Signs / Symptoms / Labs Results and Location in Medical Record [ ] Ejection Fraction = % [ ] Dyspnea, Hypoxia [x] Peripheral edema-1+LE edema H&P on 06/03 [x] Elevated BNP 163.4 H Laboratory on 06/03 [x] Shortness of breath suspected due to congestive heart failure exacerbation H&P on 06/03 [x] Orthopnea / SOB / dyspnea H&P on 06/03 [ ] Pleural effusion / pulmonary edema [ ] CXR results [ ] Arrhythmia--tachycardia Present Risk Factors Results and Location in Medical Record [ ] History of CAD/ischemic heart disease [x] CKD Hypertension H&P on 06/03 [ ] History of SC Present Treatments Results and Location in Medical Record [ ] Administration of FAVIO / ARB / BB [ ] Cardiac monitoring / telemetry/ECHO [x] Lasix 20 mg IV Medication from 06/04 to 06/06 [x] Lasix 40 mg PO Medication on 06/07, 06/08 [ ] AICD [ ] Cardiology Consult CDS/Crew Trainer Signature: CASSIE Phone #: Date/Time: 06/12/2020 This is a permanent part of the Medical Record [facility]
--- NOTE | 2020-06-13 14:20 | CCLSPC ---
PROCEDURE: Dual-chamber pacemaker insertion. INDICATION: Weakness, lightheadedness, severe bradycardia with heart rates in the low 40s. DESCRIPTION OF PROCEDURE: The patient was brought to cardiac dentures lab technician, and the left subclavian area was prepped and draped. The patient was given Versed 1 mg and fentanyl 25 mcg intravenously twice during the procedure for 1 hour and 15 minutes of continuous moderate conscious sedation with appropriate monitoring. 1% Lidocaine was infiltrated into the left subclavian area. A J-wire was placed into the left subclavian vein and advanced into the superior vena cava. Pacemaker pocket was manufactured using blunt and sharp dissection with electrocautery for hemostasis. An antibiotic solution-soaked. Gauze was placed into the pocket. A second J-wire was then placed into the left subclavian vein. Using seven-Libyan peel-away sheaths, the leads were inserted and the sheaths were peeled away. The ventricular lead was advanced to the RV apex and screwed into place. The right atrial lead was screwed into the right atrium. RV lead-R-wave 16.7, impedance 775, threshold 1 V. Right atrial lead R-wave 1.2, impedance 551, threshold 2.1 initially, but then fell to 1.0 during the case. The tabs were removed from the suture tie-downs. Both leads were secured in place with two sutures of 0 silk. The antibiotic solution-soaked gauze was removed from the pocket, and this was irrigated with copious amounts of antibiotic solution. The leads were attached to the pacemaker generator and this was inserted into the pocket and secured in place with one suture of 0 silk. The incision was then closed using two layers of running 3-0 Vicryl one layer of running 4-0 Vicryl. Dermabond was placed on the incision. The patient tolerated the procedure well. Job ID: [id number]
== END 2020-06-08 13:22 | disposition home health service (06) | DRG 242 ==
LOC: ERS 15:08 → 2NO 16:53 → OBSVTOIN 06-04 13:19
PROVIDERS: ADMIT Internal Medicine; ATTEND Internal Medicine
PROC: 0JH606Z Insertion of Pacemaker, Dual Chamber into Chest Subcutaneous Tissue and Fascia, Open Approach (ICD-10-PCS; principal; 2020-06-06)
PROC: 02HK3JZ Insertion of Pacemaker Lead into Right Ventricle, Percutaneous Approach (ICD-10-PCS; 2020-06-06)
PROC: 02H63JZ Insertion of Pacemaker Lead into Right Atrium, Percutaneous Approach (ICD-10-PCS; 2020-06-06)
DX: R00.1 Bradycardia, unspecified (principal); I50.33 Acute on chronic diastolic (congestive) heart failure; N17.9 Acute kidney failure, unspecified; I13.0 Hypertensive heart and chronic kidney disease with heart failure and stage 1 through stage 4 chronic kidney disease, or unspecified chronic kidney disease; N18.30 Chronic kidney disease, stage 3 unspecified; Z96.642 Presence of left artificial hip joint; E11.22 Type 2 diabetes mellitus with diabetic chronic kidney disease; I48.0 Paroxysmal atrial fibrillation; E78.00 Pure hypercholesterolemia, unspecified; F32.9 Major depressive disorder, single episode, unspecified; E83.42 Hypomagnesemia; Z90.49 Acquired absence of other specified parts of digestive tract; Z90.710 Acquired absence of both cervix and uterus; Z98.890 Other specified postprocedural states; Z79.01 Long term (current) use of anticoagulants; Z79.4 Long term (current) use of insulin; Z79.899 Other long term (current) drug therapy; E53.8 Deficiency of other specified B group vitamins; Z20.828 Contact with and (suspected) exposure to other viral communicable diseases; D53.9 Nutritional anemia, unspecified
CPT/HCPCS: 33249; 36415; 36416; 71045; 80048; 80053; 81001; 82607; 82746; 83735; 83880; 84484; 85025; 87635; 90471; 90732; 93005; 93010; 93798; 96372; 96374; 96375; 99152; 99153; C1785; C1898; G0009; G0378; J0690; J1580; J1815; J1940; J2001; J2250; J3010; J3420; J3475; J3490; J7050; U0003

== ENCOUNTER 2020-07-14 09:48 | Emergency (ER) | payer MEDICARE, BC ==
[2020-07-14] MEDS ORDERED: Meclizine HCl 25 MG TAB ONE (10:42)
[2020-07-14] MEDS ORDERED: Ondansetron PF 4 MG/2 ML Vial ONE (10:42)
[2020-07-14 10:50] LABS: ALT (SGPT) 20 U/L (8-55); AST (SGOT) 26 U/L (5-34); Albumin 3.4 g/dL (3.4-4.8); Alkaline Phosphatase 91 U/L (40-110); Anion Gap 13 mmol/L (10-20); BUN (Urea Nitrogen) 15 mg/dL (9.8-20.1); Bilirubin, Total 0.8 mg/dL (0.2-1.2); Calc. Creatinine Clearance 0 mL/min (70-130); Calcium 8.6 mg/dL (7.8-10.44); Carbon Dioxide 27 mmol/L (23-31); Chloride 108 mmol/L (98-107); Glucose 169 mg/dL (83-110); Potassium 4.5 mmol/L (3.5-5.1); Protein, Total 6.4 g/dL (6.0-8.3); Sodium 143 mmol/L (136-145)
[2020-07-14 10:51] LABS: #Basophils 0.1 thou/uL (0.0-0.2); #Eosinphils 0.2 thou/uL (0.0-0.7); #Monocytes 0.5 thou/uL (0.11-0.59); #Neutrophils 4.4 thou/uL (1.40-6.50); %Basophils 1.7 % (0.0-1.0); %Eosinophils 2.9 % (0.0-10.0); %Lymphocytes 16.5 % (21.0-51.0); %Monocytes 7.9 % (0.0-10.0); %Neutrophils 71.1 % (42.0-75.0); Hemoglobin 11.8 g/dL (12.0-16.0); Mean Platelet Volume 9.3 fL (7.4-10.4); Platelet Count 117 thou/uL (130-400); Platelet Morphology Comment Appears Decreased; Red Blood Cell (RBC) Count 3.81 mill/uL (4.20-5.40); White Blood Cell (WBC) Count 6.2 thou/uL (4.8-10.8)
[2020-07-14 10:52] LABS: MDiff Complete? YES
--- NOTE | 2020-07-14 11:16 | RAD ---
EXAM: Chest one view: HISTORY: Dizziness nausea and vomiting history of prior vertigo COMPARISON: 06/06/2020 FINDINGS: Stable left ICD. Heart size: Moderate cardiomegaly. Lungs: Minimal stable increased markings bilaterally. No evidence for confluent lobar pneumonia, significant pleural effusion, acute edema, or pneumothorax , or other significant acute process. IMPRESSION: Stable exam.
[2020-07-14] MEDS ORDERED: Iopamidol-370 76% 500 ML 1 ML ONE (11:44)
--- NOTE | 2020-07-14 11:45 | CT ---
CT head noncontrast HISTORY: Dizziness. Altered mental status. FINDINGS: No comparison. There is no evidence of acute intracranial hemorrhage or infarct. Mild chronic ischemic small vessel disease evident throughout the periventricular white matter of each cerebral hemisphere. There is no mass effect or shift of midline structures. Visualized paranasal sinuses remain well aerated. IMPRESSION : No acute abnormalities are demonstrated.
--- NOTE | 2020-07-14 11:58 | CT ---
CT angiogram neck with IV contrast and 3-D imaging HISTORY: TIA. Vertigo. Vascular disease. FINDINGS: Good contrast opacification of the aortic arch with normal branching of the great vessels. Very mild calcification throughout the arterial structures. Good flow into each cerebral and cerebellar system. No filling defects evident. Nonenlarged, nonspecific lymph nodes within the partially visualized upper mediastinum and along each jugular chain. Left subclavian cardiac electronic device partially visualized. Intracranial vasculature not completely imaged. IMPRESSION : Very mild atherosclerosis. No acute vascular abnormalities are demonstrated.
[2020-07-14 13:02] LABS: Bilirubin Negative (Negative); Blood, Urine Negative (Negative); Clarity Clear (Clear); Glucose, Urine (Dipstick) Normal (Negative); Ketone, Urine Negative (Negative); Leukocyte Negative Leu/uL (Negative); Nitrite Negative (Negative); Protein, Urine (Dipstick) Negative (Neg-Trace); Specific Gravity, Urine 1.021 (1.002-1.036); Urobilinogen Normal mg/dL (Less than 2); pH, Urine 7.5 (5.0-9.0)
== END 2020-07-14 13:36 | disposition home or self-care (01) ==
LOC: ERS 09:48
DX: H81.399 Other peripheral vertigo, unspecified ear (principal); E11.9 Type 2 diabetes mellitus without complications; I10 Essential (primary) hypertension; Z79.01 Long term (current) use of anticoagulants; Z79.82 Long term (current) use of aspirin; Z79.899 Other long term (current) drug therapy
CPT/HCPCS: 70450; 70498; 71045; 80053; 81003; 82550; 84484; 85025; 93005; 96374; J2405; Q9967

== ENCOUNTER 2020-10-08 13:16 | Outpatient (CLI) | payer MEDICARE, BC ==
[~2020-10-08 13:16] MED LIST changes: -Iopamidol 370 76% 100 ML VIAL ONE; +Magnevist 469MG/ML 20 ML VIAL ONE
== END 2020-10-08 13:17 | disposition home or self-care (01) ==
LOC: MRI 13:16
PROVIDERS: ATTEND Specialist
DX: H81.12 Benign paroxysmal vertigo, left ear (principal)
CPT/HCPCS: 70553; A9579

== ENCOUNTER 2021-03-11 13:32 | Outpatient (CLI) | payer MEDICARE, BC | END 2021-03-11 13:33 | disposition home or self-care (01) | LOC: BICRAD 13:32 | PROVIDERS: ATTEND Podiatrist | DX: M79.671 Pain in right foot (principal) ==

== ENCOUNTER 2021-08-19 10:46 | Outpatient (CLI) | payer MEDICARE, BC | END 2021-08-19 10:47 | disposition home or self-care (01) | LOC: BICULT 10:46 | PROVIDERS: ATTEND Family Medicine | DX: N10 Acute pyelonephritis (principal) | CPT/HCPCS: 76770 ==

== ENCOUNTER 2021-10-31 09:31 | Outpatient (CLI) | payer MEDICARE, BC | END 2021-10-31 09:32 | disposition home or self-care (01) | LOC: BICMAMMO 09:31 | PROVIDERS: ATTEND Student in an Organized Health Care Education/Training Program | DX: Z13.820 Encounter for screening for osteoporosis (principal); M85.851 Other specified disorders of bone density and structure, right thigh; Z96.642 Presence of left artificial hip joint | CPT/HCPCS: 77080 ==

== ENCOUNTER 2022-04-17 12:10 | Outpatient (CLI) | payer MEDICARE, BC | END 2022-04-17 12:11 | disposition home or self-care (01) | LOC: RAD 12:10 | PROVIDERS: ATTEND Nurse Practitioner Family | DX: M47.26 Other spondylosis with radiculopathy, lumbar region (principal); I70.0 Atherosclerosis of aorta | CPT/HCPCS: 72100; 72220 ==

== ENCOUNTER 2022-05-22 07:00 | Outpatient (CLI) | payer MEDICARE, BC | END 2022-05-22 07:01 | disposition home or self-care (01) | LOC: RAD 07:00 | PROVIDERS: ATTEND Nurse Practitioner Family | DX: I48.0 Paroxysmal atrial fibrillation (principal) | CPT/HCPCS: 36415; 71046; 80053; 80061; 82043; 83036; 83970; 84443 ==

== ENCOUNTER 2022-09-29 10:17 | Outpatient (CLI) | payer MEDICARE, BC | END 2022-09-29 10:18 | disposition home or self-care (01) | LOC: BICRAD 10:17 | PROVIDERS: ATTEND Surgery | DX: R20.0 Anesthesia of skin (principal); M47.812 Spondylosis without myelopathy or radiculopathy, cervical region; M48.8X2 Other specified spondylopathies, cervical region | CPT/HCPCS: 72050 ==

== ENCOUNTER 2022-10-01 12:30 | Outpatient (CLI) | payer MEDICARE, BC | END 2022-10-01 12:31 | disposition home or self-care (01) | LOC: MRI 12:30 | PROVIDERS: ATTEND Surgery | DX: M47.812 Spondylosis without myelopathy or radiculopathy, cervical region (principal); R20.0 Anesthesia of skin | CPT/HCPCS: 72141 ==

== ENCOUNTER 2023-02-03 05:50 | Day surgery (SDC) | payer MEDICARE, BC ==
[2023-01-30 13:56] VITALS: BMI 35.9
[2023-02-03] MEDS ORDERED: Bacitracin Zinc Ointment 30 gm TUBE ONE (06:39)
[2023-02-03] MEDS ORDERED: Bupivacaine PF 0.5% 30 ML VIAL ONE (06:39)
[2023-02-03] MEDS ORDERED: fentaNYL 50 mcg/mL 1 mL Vial ONE (07:00)
[2023-02-03] MEDS ORDERED: Sodium Chloride 0.9% 100 ML ONE (07:07)
[2023-02-03] MEDS ORDERED: CEFAZOLIN 2 GM VIAL ONE (07:07)
[2023-02-03] MEDS ORDERED: PROPOFOL 200 MG/20 ML VIAL ONE (07:22)
== END 2023-02-03 10:43 | disposition home or self-care (01) ==
LOC: SDC 05:50
PROVIDERS: ATTEND Orthopaedic Surgery Hand Surgery
PROC: 01N50ZZ Release Median Nerve, Open Approach (ICD-10-PCS; principal; 2023-02-03)
DX: G56.01 Carpal tunnel syndrome, right upper limb (principal); I10 Essential (primary) hypertension; E11.9 Type 2 diabetes mellitus without complications; Z79.899 Other long term (current) drug therapy; Z88.8 Allergy status to other drugs, medicaments and biological substances
CPT/HCPCS: 64721; 82962; J3010; 36416; J2704; J3490; S0020

== ENCOUNTER 2023-03-13 07:32 | Day surgery (SDC) | payer MEDICARE, BC ==
[2023-03-12 11:32] VITALS: BMI 35.9
[2023-03-13] MEDS ORDERED: Bacitracin Zinc Ointment 30 gm TUBE ONE (10:09)
[2023-03-13] MEDS ORDERED: Bupivacaine PF 0.5% 30 ML VIAL ONE (10:09)
[2023-03-13] MEDS ORDERED: fentaNYL PF 100 MCG/2 ML SYRINGE ONE (11:02)
[2023-03-13] MEDS ORDERED: Sodium Chloride 0.9% 100 ML ONE (11:11)
[2023-03-13] MEDS ORDERED: CEFAZOLIN 2 GM VIAL ONE (11:11)
[2023-03-13] MEDS ORDERED: ePHEDrine Sulfate 50 MG/10 ML VIAL ONE (11:25)
[2023-03-13] MEDS ORDERED: Ondansetron PF 4 MG/2 ML Vial ONE (11:25)
[2023-03-13] MEDS ORDERED: Dexamethasone 20 MG/5 ML VIAL ONE (11:25)
[2023-03-13] MEDS ORDERED: Lidocaine 1% PF 5 ML VIAL ONE (11:25)
[2023-03-13] MEDS ORDERED: PROPOFOL 200 MG/20 ML VIAL ONE (11:25)
== END 2023-03-13 14:17 | disposition home or self-care (01) ==
LOC: SDC 07:32
PROVIDERS: ATTEND Orthopaedic Surgery Hand Surgery
PROC: 01N50ZZ Release Median Nerve, Open Approach (ICD-10-PCS; principal; 2023-03-13)
DX: G56.02 Carpal tunnel syndrome, left upper limb (principal); I10 Essential (primary) hypertension; E11.9 Type 2 diabetes mellitus without complications; E78.00 Pure hypercholesterolemia, unspecified; I48.91 Unspecified atrial fibrillation; F32.A Depression, unspecified; Z79.82 Long term (current) use of aspirin; Z79.4 Long term (current) use of insulin; Z79.899 Other long term (current) drug therapy; Z88.8 Allergy status to other drugs, medicaments and biological substances; Z96.642 Presence of left artificial hip joint; Z95.0 Presence of cardiac pacemaker; Z90.49 Acquired absence of other specified parts of digestive tract; Z90.710 Acquired absence of both cervix and uterus; Z98.890 Other specified postprocedural states
CPT/HCPCS: 36416; J3490; S0020

== ENCOUNTER 2024-03-25 13:00 | Inpatient (IN) | payer MEDICARE ==
[2024-03-25 15:08] LABS: Bilirubin Negative (Negative); Blood, Urine Negative (Negative); Clarity Clear (Clear); Glucose, Urine (Dipstick) Greater than 1000 mg/dL (Negative); Ketone, Urine Negative (Negative); Leukocyte 75 Leu/uL (Negative); Nitrite 1+ (Negative); Protein, Urine (Dipstick) Negative (Neg-Trace); Urobilinogen Normal mg/dL (Less than 2)
[2024-03-25 15:17] LABS: INR-International Normal Ratio 1.4; PTT 29.9 sec (22.9-36.1)
[2024-03-25 15:18] LABS: ALT (SGPT) 33 U/L (8-55); AST (SGOT) 28 U/L (5-34); Albumin 3.3 g/dL (3.4-4.8); Alkaline Phosphatase 105 U/L (40-110); Anion Gap 12 mmol/L (10-20); BUN (Urea Nitrogen) 20 mg/dL (9.8-20.1); Bilirubin, Total 0.6 mg/dL (0.2-1.2); Calc. Creatinine Clearance 0 mL/min (70-130); Calcium 8.9 mg/dL (7.8-10.44); Carbon Dioxide 29 mmol/L (23-31); Chloride 100 mmol/L (98-107); Estimated GFR 37; Globulin 2.8 g/dL (2.4-3.5); Glucose 378 mg/dL (83-110); Potassium 3.9 mmol/L (3.5-5.1); Protein, Total 6.1 g/dL (5.8-8.1); Sodium 137 mmol/L (136-145)
[2024-03-25 15:34] LABS: #Basophils Less than 0.03 10x3/uL (0.0-0.2); %Basophils 0.3 % (0.0-1.0); %Eosinophils 2.6 % (0.0-10.0); %Lymphocytes 21.6 % (21.0-51.0); %Neutrophils 68.2 % (42.0-75.0); Hematocrit 39.3 % (36.0-47.0); Hemoglobin 13.1 g/dL (12.0-16.0); Mean Corpuscular HGB CONC 33.3 g/dL (32.0-36.0); Mean Corpuscular Volume 90.1 fL (78.0-98.0); Mean Platelet Volume 11.5 fL (7.4-10.4); Platelet Count 104 10x3/uL (130-400); RBC Distribution Width 12.5 % (11.5-14.5); Red Blood Cell (RBC) Count 4.36 mill/uL (4.20-5.40)
[2024-03-25 15:41] LABS: Burr Cells SLIGHT = 2-5 cells HPF (0-1); Helmet Cells SLIGHT = 2-5 cells HPF (0-1); Ovalocytes SLIGHT = 2-5 cells HPF (0-1); Platelet Adequacy Comment Platelets Decreased; Polychromasia SLIGHT = 2-3 cells HPF (0-2)
[2024-03-30] MEDS ORDERED: Iopamidol 370 76% 100 ML VIAL ONE (09:31)
[2024-03-30] MEDS ORDERED: CEFAZOLIN 2 GM VIAL ONE (11:19)
[2024-03-30] MEDS ORDERED: Protamine Sulfate 50 MG/5 ML VIAL ONE (11:19)
[2024-03-30] MEDS ORDERED: Heparin 10,000 UNITS/ 10 ML VIAL ONE (11:20)
[2024-03-30] MEDS ORDERED: Rocuronium Bromide 10 MG/ML (10ML VIAL) ONE (14:02)
[2024-03-30] MEDS ORDERED: Ondansetron PF 4 MG/2 ML Vial ONE (14:02)
[2024-03-30] MEDS ORDERED: Dexamethasone 20 MG/5 ML VIAL ONE (14:02)
[2024-03-30] MEDS ORDERED: SUGAMMADEX SODIUM 200 MG/2 ML VIAL ONE (14:02)
[2024-03-30] MEDS ORDERED: fentaNYL 50 mcg/mL 1 mL Vial ONE ×2 (14:03→16:48)
[2024-03-30] MEDS ORDERED: Lidocaine 1% PF 5 ML VIAL ONE (14:04)
[2024-03-30] MEDS ORDERED: PHENYLEPHRINE-NS 100 MCG/ML 10 ML SYRINGE ONE (14:40)
[2024-03-30] MEDS ORDERED: Dextrose 50% Abboject 50 ML SYRINGE ONE (15:43)
[2024-03-30] MEDS ORDERED: Acetaminophen 325 MG TAB PO PRN (15:59)
[2024-03-30] MEDS ORDERED: Labetalol HCl 100 MG/20 ML VIAL ONE (16:08)
[2024-03-30] MEDS ORDERED: Dextrose 50% Abboject 50 ML SYRINGE SLOW IVP PRN (16:20)
[2024-03-30] MEDS ORDERED: Dextrose 5% in Water 1,000 ML IV PRN (16:20)
[2024-03-30] MEDS ORDERED: Glucagon 1 MG/ML KIT IM PRN (16:20)
[2024-03-30] MEDS ORDERED: Non-Formulary Item 1 EACH (Cetirizine Hcl [Zyrtec] 10 MG Capsule) PO PRN (16:23)
[2024-03-30] MEDS ORDERED: Acetaminophen 500 MG TAB PO PRN ×2 (16:23→16:26)
[2024-03-30] MEDS ORDERED: Cetirizine HCl 10 MG TAB PO PRN (16:30)
[2024-03-30] MEDS ORDERED: Loratadine 10 MG TAB PO PRN (16:42)
[2024-03-30] MEDS ORDERED: diphenhydrAMINE 25 MG CAP PO PRN (16:43)
[2024-03-30] MEDS ORDERED: Insulin Regular, Human 100 UNIT/ML 10 ML VIAL SC PRN (17:00)
[2024-03-30] MEDS ORDERED: Carvedilol 25 MG TAB PO SCH (17:00)
[2024-03-30] MEDS: Carvedilol 25 MG TAB PO SCH (18:11)
[2024-03-30 18:33] VITALS: BMI 38.9
[2024-03-30] MEDS ORDERED: Gabapentin 300 MG CAP PO SCH (21:00)
[2024-03-30] MEDS ORDERED: Non-Formulary Item 1 EACH (Insulin Glargine,Hum.Rec.Anlog [Toujeo Solostar] 300 UNIT/ML I SQ SCH (21:00)
[2024-03-30] MEDS ORDERED: Non-Formulary Item 1 EACH (Hydralazine Hcl [Hydralazine Hcl] 50 MG Tablet) PO SCH (21:00)
[2024-03-30] MEDS ORDERED: Non-Formulary Item 1 EACH (Atorvastatin Calcium [Lipitor] 80 MG Tablet) PO SCH (21:00)
[2024-03-30] MEDS: hydrALAZINE 25 MG TAB PO SCH (21:08)
[2024-03-30] MEDS: Acetaminophen 325 MG TAB PO PRN (21:10)
[2024-03-30] MEDS: Atorvastatin Calcium 40 MG TAB PO SCH (21:10)
[2024-03-30] MEDS: Gabapentin 300 MG CAP PO SCH (21:12)
[2024-03-30] MEDS: Aspirin 81 mg Enteric Coated Tablet PO SCH (21:12)
[2024-03-30] MEDS: Clopidogrel Bisulfate 75 MG TAB PO SCH (21:13)
[2024-03-31 04:18] LABS: #Basophils Less than 0.03 10x3/uL (0.0-0.2); #Eosinphils Less than 0.03 10x3/uL (0.0-0.7); %Basophils 0.1 % (0.0-1.0); %Lymphocytes 8.9 % (21.0-51.0); %Monocytes 2.3 % (0.0-10.0); %Neutrophils 88.3 % (42.0-75.0); Hemoglobin 11.7 g/dL (12.0-16.0); Mean Corpuscular HGB CONC 33.4 g/dL (32.0-36.0); Mean Corpuscular Hemoglobin 30.3 pg (27.0-31.0); Mean Corpuscular Volume 90.7 fL (78.0-98.0); Mean Platelet Volume 11.2 fL (7.4-10.4); Platelet Count 99 10x3/uL (130-400); RBC Distribution Width 12.7 % (11.5-14.5); Red Blood Cell (RBC) Count 3.86 mill/uL (4.20-5.40)
[2024-03-31 04:33] LABS: Anion Gap 12 mmol/L (10-20); BUN (Urea Nitrogen) 18 mg/dL (9.8-20.1); Calc. Creatinine Clearance 56 mL/min (70-130); Calcium 8.2 mg/dL (7.8-10.44); Carbon Dioxide 23 mmol/L (23-31); Chloride 110 mmol/L (98-107); Estimated GFR 45; Glucose 293 mg/dL (83-110); Potassium 4.8 mmol/L (3.5-5.1); Sodium 140 mmol/L (136-145)
[2024-03-31 08:00] VITALS: TEMP 97.9
[2024-03-31] MEDS: Ferrous Gluconate 324 MG TAB PO SCH (08:58)
[2024-03-31] MEDS: Prenatal Vitamin 1 TAB PO SCH (08:59)
[2024-03-31] MEDS: Oxybutynin 5 MG TAB PO SCH (08:59)
[2024-03-31] MEDS: Glimepiride 4 MG TAB PO SCH (08:59)
[2024-03-31] MEDS: Calcitriol 0.25 MCG CAP PO SCH (08:59)
[2024-03-31] MEDS: Cholecalciferol 1,000 UNITS (25 MCG) TAB PO SCH (08:59)
[2024-03-31] MEDS: Ramipril 5 MG CAP PO SCH (08:59)
[2024-03-31] MEDS: Cyanocobalamin (Vitamin B-12) 1,000 MCG TAB PO SCH (08:59)
[2024-03-31] MEDS ORDERED: Furosemide 40 MG TAB PO SCH (09:00)
[2024-03-31] MEDS ORDERED: Non-Formulary Item 1 EACH (Zinc Gluconate [Zinc] 30 MG Tablet) PO SCH (09:00)
[2024-03-31] MEDS ORDERED: Aspirin Chewable 81 MG TAB PO SCH ×2 (09:00)
[2024-03-31] MEDS ORDERED: Clopidogrel Bisulfate 75 MG TAB PO SCH (09:00)
[2024-03-31] MEDS ORDERED: Cholecalciferol 1,000 UNITS (25 MCG) TAB PO SCH (09:00)
[2024-03-31] MEDS ORDERED: Oxybutynin 5 MG TAB PO SCH (09:00)
[2024-03-31] MEDS: Furosemide 20 MG TAB PO SCH (09:00)
[2024-03-31] MEDS ORDERED: Ferrous Gluconate 324 MG TAB PO SCH (09:00)
[2024-03-31] MEDS ORDERED: Glimepiride 4 MG TAB PO SCH (09:00)
[2024-03-31] MEDS ORDERED: Cyanocobalamin (Vitamin B-12) 1,000 MCG TAB PO SCH (09:00)
[2024-03-31] MEDS ORDERED: ZINC 30 MG PO SCH ×2 (09:00)
[2024-03-31] MEDS ORDERED: Calcitriol 0.25 MCG CAP PO SCH (09:00)
[2024-03-31 10:57] VITALS: BP 141/64
== END 2024-03-31 13:00 | disposition home or self-care (01) | DRG 274 ==
LOC: SURG A 03-30 09:32 → 2NO 03-30 17:35
PROVIDERS: ADMIT Internal Medicine Cardiovascular Disease; ATTEND Internal Medicine Cardiovascular Disease
PROC: 02L73DK Occlusion of Left Atrial Appendage with Intraluminal Device, Percutaneous Approach (ICD-10-PCS; principal; 2024-03-30)
PROC: B245ZZ4 Ultrasonography of Left Heart, Transesophageal (ICD-10-PCS; 2024-03-30)
DX: I48.0 Paroxysmal atrial fibrillation (principal); Z00.6 Encounter for examination for normal comparison and control in clinical research program; I12.9 Hypertensive chronic kidney disease with stage 1 through stage 4 chronic kidney disease, or unspecified chronic kidney disease; N18.9 Chronic kidney disease, unspecified; E11.22 Type 2 diabetes mellitus with diabetic chronic kidney disease; E78.5 Hyperlipidemia, unspecified; I08.1 Rheumatic disorders of both mitral and tricuspid valves; G47.33 Obstructive sleep apnea (adult) (pediatric); W19.XXXD Unspecified fall, subsequent encounter; M19.90 Unspecified osteoarthritis, unspecified site; I49.5 Sick sinus syndrome; Z79.01 Long term (current) use of anticoagulants; Z79.84 Long term (current) use of oral hypoglycemic drugs; Z79.899 Other long term (current) drug therapy
CPT/HCPCS: 33340; 36415; 36416; 80048; 80053; 81003; 85025; 85347; 85610; 85730; 86850; 86900; 86901; 93306; 93355; C1725; C1759; C1760; C1894; J1100; J1644; J2405; J2720; J3010; J7999

== ENCOUNTER 2024-04-23 17:09 | Inpatient (IN) | payer MEDICARE ==
[2024-04-23 18:24] LABS: #Basophils 0.05 10x3/uL (0.0-0.2); %Basophils 0.5 % (0.0-1.0); %Eosinophils 0.7 % (0.0-10.0); %Monocytes 9.4 % (0.0-10.0); %Neutrophils 68.6 % (42.0-75.0); Hematocrit 35.3 % (36.0-47.0); Hemoglobin 11.5 g/dL (12.0-16.0); Mean Corpuscular HGB CONC 32.6 g/dL (32.0-36.0); Mean Corpuscular Hemoglobin 30.1 pg (27.0-31.0); Mean Corpuscular Volume 92.4 fL (78.0-98.0); Mean Platelet Volume 11.5 fL (7.4-10.4); Platelet Count 114 10x3/uL (130-400); RBC Distribution Width 13.2 % (11.5-14.5); Red Blood Cell (RBC) Count 3.82 mill/uL (4.20-5.40)
[2024-04-23 18:25] LABS: ALT (SGPT) 25 U/L (8-55); AST (SGOT) 30 U/L (5-34); Albumin 3.4 g/dL (3.4-4.8); Alkaline Phosphatase 106 U/L (40-110); Anion Gap 12 mmol/L (10-20); BUN (Urea Nitrogen) 22 mg/dL (9.8-20.1); Bilirubin, Total 0.5 mg/dL (0.2-1.2); Calc. Creatinine Clearance 0 mL/min (70-130); Calcium 9.1 mg/dL (7.8-10.44); Carbon Dioxide 26 mmol/L (23-31); Chloride 106 mmol/L (98-107); Estimated GFR 56; Globulin 2.7 g/dL (2.4-3.5); Glucose 161 mg/dL (83-110); Potassium 4.4 mmol/L (3.5-5.1); Protein, Total 6.1 g/dL (5.8-8.1); Sodium 140 mmol/L (136-145)
[2024-04-23] MEDS ORDERED: Lidocaine 4% Patch ONE (19:02)
[2024-04-23] MEDS ORDERED: Methocarbamol 500 MG TAB ONE (19:02)
[2024-04-23] MEDS ORDERED: HYDROcodone/Acetaminophen 5/325 mg Tablet ONE (19:03)
[2024-04-23 19:43] LABS: Magnesium 1.9 mg/dL (1.6-2.6)
[2024-04-23 19:49] LABS: INR-International Normal Ratio 1.1; PTT 28.4 sec (22.9-36.1); Prothrombin Time 14.6 sec (12.0-14.7)
[2024-04-23 19:50] LABS: Troponin I Less than 0.010 ng/mL (< 0.028)
[2024-04-23] MEDS ORDERED: Dextrose 5% in Water 1,000 ML IV PRN (21:15)
[2024-04-23] MEDS ORDERED: Acetaminophen 650 MG Suppository PR PRN (21:15)
[2024-04-23] MEDS ORDERED: Dextrose 50% Abboject 50 ML SYRINGE SLOW IVP PRN (21:15)
[2024-04-23] MEDS ORDERED: Acetaminophen 325 MG TAB PO PRN (21:15)
[2024-04-23] MEDS ORDERED: Ondansetron PF 4 MG/2 ML Vial IVP PRN (21:15)
[2024-04-23] MEDS ORDERED: Ondansetron ODT 4 MG TAB PO PRN (21:15)
[2024-04-23] MEDS ORDERED: Insulin Lispro 100 UNIT/ML 10 ML VIAL SC PRN (21:15)
[2024-04-23] MEDS ORDERED: Glucagon 1 MG/ML KIT IM PRN (21:15)
[2024-04-23] MEDS ORDERED: Morphine 4 MG/ML VIAL SLOW IVP PRN (21:19)
[2024-04-23] MEDS ORDERED: hydrALAZINE 20 MG/ML VIAL ONE (21:22)
[2024-04-23] MEDS ORDERED: Furosemide 40 MG (4 mL) VIAL ONE (21:31)
[2024-04-23 21:44] LABS: Troponin I 0.012 ng/mL (< 0.028)
[2024-04-23 22:28] VITALS: BMI 37.8
[2024-04-24 01:05] LABS: Troponin I 0.021 ng/mL (< 0.028)
[2024-04-24] MEDS: Furosemide 40 MG (4 mL) VIAL SLOW IVP SCH (05:43)
[2024-04-24 07:08] LABS: Anion Gap 12 mmol/L (10-20); BUN (Urea Nitrogen) 23 mg/dL (9.8-20.1); Calc. Creatinine Clearance 61 mL/min (70-130); Calcium 9.4 mg/dL (7.8-10.44); Carbon Dioxide 28 mmol/L (23-31); Chloride 105 mmol/L (98-107); Estimated GFR 53; Glucose 137 mg/dL (83-110); Magnesium 1.9 mg/dL (1.6-2.6); Potassium 4.1 mmol/L (3.5-5.1); Sodium 141 mmol/L (136-145)
[2024-04-24 07:10] LABS: #Basophils 0.07 10x3/uL (0.0-0.2); %Basophils 0.8 % (0.0-1.0); %Lymphocytes 27.3 % (21.0-51.0); %Monocytes 10.6 % (0.0-10.0); %Neutrophils 59.3 % (42.0-75.0); Hematocrit 37.6 % (36.0-47.0); Hemoglobin 12.4 g/dL (12.0-16.0); Mean Corpuscular Volume 90.8 fL (78.0-98.0); Mean Platelet Volume 11.7 fL (7.4-10.4); Platelet Count 114 10x3/uL (130-400); RBC Distribution Width 13.2 % (11.5-14.5); Red Blood Cell (RBC) Count 4.14 mill/uL (4.20-5.40)
[2024-04-24] MEDS: hydrALAZINE 25 MG TAB PO SCH (09:21)
[2024-04-24] MEDS: Carvedilol 25 MG TAB PO SCH (09:21)
[2024-04-24] MEDS: Aspirin Chewable 81 MG TAB PO SCH (09:21)
[2024-04-24] MEDS: Enoxaparin 40 MG (0.4 mL) SYRINGE SC SCH (09:29)
[2024-04-24] MEDS ORDERED: Acetaminophen 500 MG TAB PO PRN (14:37)
[2024-04-24] MEDS ORDERED: Acetaminophen 325 MG TAB PO PRN (15:01)
[2024-04-24] MEDS ORDERED: Loratadine 10 MG TAB PO PRN (15:03)
[2024-04-24] MEDS ORDERED: oxyCODONE 5 MG TAB PO PRN (15:35)
[2024-04-24] MEDS: NIFEdipine XL 30 MG ER.TAB PO SCH (15:42)
[2024-04-24] MEDS ORDERED: Pregabalin 75 MG CAP PO SCH (21:00)
[2024-04-24] MEDS: Clopidogrel Bisulfate 75 MG TAB PO SCH (21:05)
[2024-04-24] MEDS: Pregabalin 75 MG CAP PO SCH (21:05)
[2024-04-24] MEDS: Insulin Glargine 30 UNITS/0.3 ML VIAL SC SCH (21:08)
[2024-04-24] MEDS: Ramipril 5 MG CAP PO SCH (22:34)
[2024-04-25] MEDS ORDERED: RAMIPRIL 10 MG PO SCH (09:00)
[2024-04-25] MEDS: Atorvastatin Calcium 40 MG TAB PO SCH (10:10)
[2024-04-25] MEDS: Calcitriol 0.25 MCG CAP PO SCH (10:10)
[2024-04-25] MEDS: NIFEdipine XL 30 MG ER.TAB PO SCH (10:10)
[2024-04-25] MEDS: Glimepiride 4 MG TAB PO SCH (10:10)
[2024-04-25] MEDS: Lorazepam 2 MG/ML VIAL SLOW IVP SCH (12:42)
[2024-04-25] MEDS: methylPREDNISolone Sod Succ 40 MG VIAL IVP SCH (17:26)
[2024-04-25] MEDS: Insulin Lispro 100 UNIT/ML 10 ML VIAL SC PRN (17:28)
[2024-04-26 05:00] LABS: Anion Gap 11 mmol/L (10-20); BUN (Urea Nitrogen) 25 mg/dL (9.8-20.1); Calc. Creatinine Clearance 49 mL/min (70-130); Carbon Dioxide 26 mmol/L (23-31); Chloride 107 mmol/L (98-107); Estimated GFR 42; Glucose 286 mg/dL (83-110); Potassium 4.1 mmol/L (3.5-5.1); Sodium 140 mmol/L (136-145)
[2024-04-26] MEDS: Lactated Ringer's 1,000 ML IV SCH ×2 (10:28→12:13)
[2024-04-26] MEDS ORDERED: PHENYLEPHRINE PO PRN (10:43)
[2024-04-26] MEDS ORDERED: ACETAMINOP PO PRN (10:43)
[2024-04-26] MEDS ORDERED: [UNRECOGNIZED DRUG - OTHER] PO PRN (10:43)
[2024-04-26] MEDS: Insulin Glargine 30 UNITS/0.3 ML VIAL SC SCH (12:15)
[2024-04-26 16:15] VITALS: BP 144/67; TEMP 97.7
[2024-04-26] MEDS ORDERED: Dexamethasone 4 MG TAB PO SCH (17:00)
[2024-04-26] MEDS ORDERED: Dexamethasone 1 MG TAB PO SCH (17:00)
[2024-04-26] MEDS ORDERED: Prenatal Vitamin 1 TAB PO SCH (21:00)
[2024-04-27] MEDS ORDERED: Ferrous Sulfate 325 MG TAB PO SCH (08:00)
[2024-04-27] MEDS ORDERED: Cyanocobalamin (Vitamin B-12) 1,000 MCG TAB PO SCH (09:00)
[2024-04-27] MEDS ORDERED: Cholecalciferol 1,000 UNITS (25 MCG) TAB PO SCH (09:00)
[2024-04-27] MEDS ORDERED: Furosemide 20 MG TAB PO SCH (09:00)
[2024-04-27] MEDS ORDERED: Zinc Sulfate 220 MG CAP PO SCH (09:00)
== END 2024-04-26 16:30 | disposition home or self-care (01) | DRG 291 ==
LOC: ERS 17:09 → 2NO 20:59 → OBSVTOIN 04-24 14:39
PROVIDERS: ADMIT Student in an Organized Health Care Education/Training Program; ATTEND Student in an Organized Health Care Education/Training Program
DX: I11.0 Hypertensive heart disease with heart failure (principal); I50.33 Acute on chronic diastolic (congestive) heart failure; I47.20 Ventricular tachycardia, unspecified; E78.5 Hyperlipidemia, unspecified; Z88.8 Allergy status to other drugs, medicaments and biological substances; I25.10 Atherosclerotic heart disease of native coronary artery without angina pectoris; Z90.49 Acquired absence of other specified parts of digestive tract; Z79.82 Long term (current) use of aspirin; Z98.890 Other specified postprocedural states; M48.061 Spinal stenosis, lumbar region without neurogenic claudication; E11.65 Type 2 diabetes mellitus with hyperglycemia; R77.8 Other specified abnormalities of plasma proteins; I48.0 Paroxysmal atrial fibrillation
CPT/HCPCS: 36415; 36416; 71045; 72131; 72148; 80048; 80053; 83735; 83880; 84484; 85025; 85610; 85730; 87428; 93005; 93798; 96372; 96374; 96375; 96376; G0378; J0360; J1650; J1815; J1940; J2060; J2919; J7120

== ENCOUNTER 2024-05-18 10:43 | Outpatient (CLI) | payer MEDICARE ==
[2024-05-18 11:52] LABS: #Basophils 0.03 10x3/uL (0.0-0.2); %Basophils 0.4 % (0.0-1.0); %Eosinophils 1.9 % (0.0-10.0); %Lymphocytes 19.5 % (21.0-51.0); %Monocytes 8.1 % (0.0-10.0); %Neutrophils 69.5 % (42.0-75.0); Hematocrit 37.4 % (36.0-47.0); Hemoglobin 12.8 g/dL (12.0-16.0); Mean Corpuscular HGB CONC 34.2 g/dL (32.0-36.0); Mean Corpuscular Hemoglobin 30.1 pg (27.0-31.0); Mean Platelet Volume 10.9 fL (7.4-10.4); Platelet Count 111 10x3/uL (130-400); RBC Distribution Width 12.8 % (11.5-14.5); Red Blood Cell (RBC) Count 4.25 mill/uL (4.20-5.40)
[2024-05-18 12:28] LABS: Anion Gap 14 mmol/L (10-20); BUN (Urea Nitrogen) 17 mg/dL (9.8-20.1); Calc. Creatinine Clearance 0 mL/min (70-130); Calcium 8.4 mg/dL (7.8-10.44); Carbon Dioxide 23 mmol/L (23-31); Chloride 105 mmol/L (98-107); Estimated GFR 53; Glucose 421 mg/dL (83-110); Potassium 3.7 mmol/L (3.5-5.1); Sodium 138 mmol/L (136-145)
[2024-05-18 12:33] LABS: PTT 26.1 sec (22.9-36.1)
[2024-05-18 12:34] LABS: INR-International Normal Ratio 1.3; Prothrombin Time 15.8 sec (12.0-14.7)
== END 2024-05-18 10:44 | disposition home or self-care (01) ==
LOC: LABBT 10:43
PROVIDERS: ATTEND Internal Medicine Cardiovascular Disease
DX: Z01.812 Encounter for preprocedural laboratory examination (principal); I48.0 Paroxysmal atrial fibrillation
CPT/HCPCS: 80048; 85025; 85610; 85730

== ENCOUNTER 2024-05-25 06:39 | Day surgery (SDC) | payer MEDICARE ==
[2024-05-18 11:08] VITALS: BMI 33.6
[2024-05-25] MEDS ORDERED: PHENYLEPHRINE-NS 100 MCG/ML 10 ML SYRINGE ONE (07:01)
== END 2024-05-25 09:12 | disposition home or self-care (01) ==
LOC: SDC 06:39
PROVIDERS: ATTEND Internal Medicine Cardiovascular Disease
PROC: B24BZZ4 Ultrasonography of Heart with Aorta, Transesophageal (ICD-10-PCS; principal; 2024-05-25)
DX: I48.0 Paroxysmal atrial fibrillation (principal); Z95.818 Presence of other cardiac implants and grafts; Z88.8 Allergy status to other drugs, medicaments and biological substances
CPT/HCPCS: 36416; 93312

== ENCOUNTER 2024-08-27 15:13 | Inpatient (IN) | payer MEDICARE ==
[2024-08-27] MEDS ORDERED: Sodium Chloride 0.9% 100 ML ONE (15:52)
[2024-08-27] MEDS ORDERED: Cefepime 2 GM VIAL ONE (15:52)
[2024-08-27 15:58] LABS: Actual Bicarbonate (HCO3v) 24.3 mEq/L (22-28); Analyzer IN Cardio ER; Base Excess 0.3 mEq/L (-2.0 to +3.0); Chloride (VBG) 100 mmol/L (98-106); Hematocrit-VBG 43 % (36.0-47.0); Hemoglobin (Hb) 14.5 g/dL (11.7-16.1); Potassium (VBG) 4.07 mmol/L (3.70-5.30); Sodium 136 mmol/L (133-146); pH (venous) 7.428 (7.32-7.43)
[2024-08-27] MEDS ORDERED: hydrALAZINE 20 MG/ML VIAL ONE (16:00)
[2024-08-27] MEDS ORDERED: Acetaminophen 500 MG TAB ONE (16:00)
[2024-08-27 16:39] LABS: ALT (SGPT) 16 U/L (Less than 34); AST (SGOT) 35 U/L (11-34); Albumin 3.2 g/dL (3.1-4.5); Alkaline Phosphatase 83 U/L (40-110); Anion Gap 16 mmol/L (10-20); BUN (Urea Nitrogen) 12 mg/dL (9.8-20.1); Bilirubin, Total 1.2 mg/dL (0.3-1.2); Calc. Creatinine Clearance 0 mL/min (70-130); Carbon Dioxide 22 mmol/L (23-31); Chloride 102 mmol/L (98-107); Estimated GFR 72; Globulin 3.3 g/dL (2.4-3.5); Glucose 311 mg/dL (83-110); Potassium 4.1 mmol/L (3.5-5.1); Protein, Total 6.5 g/dL (5.8-8.1); Sodium 136 mmol/L (136-145)
[2024-08-27 17:24] LABS: Hematocrit 36.1 % (36.0-47.0); Hemoglobin 12.3 g/dL (12.0-16.0); Mean Corpuscular HGB CONC 34.1 g/dL (32.0-36.0); Mean Corpuscular Hemoglobin 29.7 pg (27.0-31.0); Mean Corpuscular Volume 87.2 fL (78.0-98.0); Mean Platelet Volume 11.6 fL (7.4-10.4); Platelet Count 100 10x3/uL (130-400); RBC Distribution Width 12.3 % (11.5-14.5); Red Blood Cell (RBC) Count 4.14 mill/uL (4.20-5.40)
[2024-08-27 17:47] LABS: Band 22 % (5-11); Burr Cells SLIGHT = 2-5 cells HPF (0-1); Lymphocytes 4 % (21-51); Monocytes 3 % (0-10); Neutrophil 70 % (42-75); Ovalocytes SLIGHT = 2-5 cells HPF (0-1); Platelet Adequacy Comment Platelets Decreased; Polychromasia SLIGHT = 2-3 cells HPF (0-2)
[2024-08-27] MEDS ORDERED: Bisacodyl 5 MG TAB PO PRN (18:14)
[2024-08-27] MEDS ORDERED: Bisacodyl 10 MG SUPP PR PRN (18:14)
[2024-08-27] MEDS ORDERED: Acetaminophen 325 MG TAB PO PRN (18:14)
[2024-08-27] MEDS ORDERED: Ondansetron PF 4 MG/2 ML Vial IVP PRN (18:14)
[2024-08-27] MEDS ORDERED: Senokot S 8.6-50 MG TAB PO PRN (18:14)
[2024-08-27] MEDS ORDERED: Insulin Lispro 100 UNIT/ML 10 ML VIAL SC PRN ×2 (18:32)
[2024-08-27] MEDS ORDERED: Dextrose 5% in Water 1,000 ML IV PRN (18:32)
[2024-08-27] MEDS ORDERED: Glucagon 1 MG/ML KIT IM PRN (18:32)
[2024-08-27] MEDS ORDERED: Dextrose 50% Abboject 50 ML SYRINGE SLOW IVP PRN (18:32)
[2024-08-27 20:17] LABS: Lactic Acid 2.01 mmol/L (0.50-2.20)
[2024-08-27] MEDS: Vancomycin (BATCH) 2 GM in Premix 1 BAG IVPB SCH ×2 (20:17→20:37)
[2024-08-27 20:28] LABS: Troponin I 0.258 ng/mL (< 0.028)
[2024-08-27] MEDS: Famotidine/PF 20 mg/2ml Vial SLOW IVP SCH (20:38)
[2024-08-27] MEDS: Sodium Chloride 0.9% 1,000 ML IV SCH (20:38)
[2024-08-27] MEDS: Doxycycline 100 MG in Sodium Chloride 0.9% 100 ML IVPB SCH (20:50)
[2024-08-27] MEDS ORDERED: Vancomycin 1 GM in Sodium Chloride 0.9% 250 ML 300 ML IVPB SCH (21:00)
[2024-08-27] MEDS: Piperacillin/Tazobactam 3.375 GM in Sodium Chloride 0.9% 100 ML IVPB SCH (22:01)
[2024-08-28] MEDS: Piperacillin/Tazobactam 3.375 GM in Sodium Chloride 0.9% 100 ML IVPB SCH (02:49)
[2024-08-28 03:55] LABS: Strep pneumo Urine Ag NEGATIVE (NEGATIVE)
[2024-08-28 04:15] LABS: Legionella Urinary Ag Negative (Negative)
[2024-08-28 04:35] LABS: #Basophils 0.04 10x3/uL (0.0-0.2); #Eosinophils Less than 0.03 10x3/uL (0.0-0.7); %Basophils 0.4 % (0.0-1.0); %Eosinophils 0.2 % (0.0-10.0); %Lymphocytes 10.7 % (21.0-51.0); %Monocytes 6.5 % (0.0-10.0); %Neutrophils 81.9 % (42.0-75.0); Hematocrit 31.8 % (36.0-47.0); Hemoglobin 10.7 g/dL (12.0-16.0); Mean Corpuscular HGB CONC 33.6 g/dL (32.0-36.0); Mean Corpuscular Hemoglobin 29.3 pg (27.0-31.0); Mean Corpuscular Volume 87.1 fL (78.0-98.0); Mean Platelet Volume 11.2 fL (7.4-10.4); Platelet Count 92 10x3/uL (130-400); RBC Distribution Width 12.3 % (11.5-14.5); Red Blood Cell (RBC) Count 3.65 mill/uL (4.20-5.40)
[2024-08-28 04:41] LABS: Vancomycin, Random 21.8 ug/mL (See Comment)
[2024-08-28 04:42] LABS: Hemoglobin A1c 8.1 % (4.0-6.0)
[2024-08-28 04:47] LABS: ALT (SGPT) 12 U/L (Less than 34); AST (SGOT) 20 U/L (11-34); Albumin 2.7 g/dL (3.1-4.5); Alkaline Phosphatase 57 U/L (40-110); Anion Gap 12 mmol/L (10-20); BUN (Urea Nitrogen) 14 mg/dL (9.8-20.1); Bilirubin, Direct 0.5 mg/dL (0.1-0.3); Bilirubin, Total 1.3 mg/dL (0.3-1.2); Calc. Creatinine Clearance 56 mL/min (70-130); Calcium 8.2 mg/dL (7.8-10.44); Carbon Dioxide 24 mmol/L (23-31); Cardiac Risk 2.2 (Less than 4.5); Chloride 105 mmol/L (98-107); Cholesterol 76 mg/dl (< 200 Desired); Estimated GFR 54; Glucose 274 mg/dL (83-110); HDL Cholesterol 35 mg/dL (>60 Neg Risk); LDL Cholesterol, Calculated 29 mg/dL; Magnesium 1.4 mg/dL (1.6-2.6); Potassium 3.7 mmol/L (3.5-5.1); Protein, Total 5.3 g/dL (5.8-8.1); Sodium 137 mmol/L (136-145); Triglycerides 61 mg/dL (Less than 150)
[2024-08-28] MEDS ORDERED: HYDROcodone/Acetaminophen 5/325 mg Tablet PO PRN (07:38)
[2024-08-28] MEDS ORDERED: Non-Formulary Item 1 EACH (Cetirizine Hcl [Zyrtec] 10 MG Capsule) PO PRN (07:38)
[2024-08-28] MEDS ORDERED: Loratadine 10 MG TAB PO PRN (07:54)
[2024-08-28] MEDS ORDERED: Cholecalciferol 1,000 UNITS (25 MCG) TAB PO SCH (09:00)
[2024-08-28] MEDS ORDERED: Non-Formulary Item 1 EACH (Atorvastatin Calcium [Lipitor] 80 MG Tablet) PO SCH (09:00)
[2024-08-28] MEDS ORDERED: Non-Formulary Item 1 EACH (Hydralazine Hcl [Hydralazine Hcl] 50 MG Tablet) PO SCH (09:00)
[2024-08-28] MEDS ORDERED: RAMIPRIL 10 MG PO SCH (09:00)
[2024-08-28] MEDS ORDERED: Non-Formulary Item 1 EACH (Ferrous Sulfate [Ferrous Sulfate] 325 MG Tab) PO SCH (09:00)
[2024-08-28] MEDS: Ramipril 5 MG CAP PO SCH (09:15)
[2024-08-28] MEDS: hydrALAZINE 25 MG TAB PO SCH (09:16)
[2024-08-28] MEDS: Glimepiride 4 MG TAB PO SCH (09:16)
[2024-08-28] MEDS: Cholecalciferol 1,000 UNITS (25 MCG) TAB PO SCH (09:16)
[2024-08-28] MEDS: Aspirin Chewable 81 MG TAB PO SCH (09:16)
[2024-08-28] MEDS: Gabapentin 300 MG CAP PO SCH (09:17)
[2024-08-28] MEDS: Ferrous Sulfate 325 MG TAB PO SCH (09:17)
[2024-08-28] MEDS: Cyanocobalamin (Vitamin B-12) 1,000 MCG TAB PO SCH (09:17)
[2024-08-28] MEDS: Calcitriol 0.25 MCG CAP PO SCH (09:17)
[2024-08-28] MEDS: Carvedilol 25 MG TAB PO SCH (09:17)
[2024-08-28] MEDS: Magnesium 2 GM/50 ML(in water) 2 GM in Premix 1 BAG IVPB SCH (09:30)
[2024-08-28] MEDS: Ketorolac Tromethamine 30 MG (1 mL) VIAL IVP SCH (13:03)
[2024-08-28] MEDS: Insulin Glargine 30 UNITS/0.3 ML VIAL SC SCH ×2 (13:05→21:48)
[2024-08-28] MEDS: Enoxaparin 40 MG (0.4 mL) SYRINGE SC SCH (13:09)
[2024-08-28] MEDS ORDERED: Vancomycin (BATCH) 1.75 GM in Premix 1 BAG IVPB SCH (21:00)
[2024-08-28] MEDS: DULoxetine 30 MG CAP PO SCH (21:36)
[2024-08-28] MEDS: Oxybutynin 5 MG TAB PO SCH (21:37)
[2024-08-28] MEDS: Atorvastatin Calcium 40 MG TAB PO SCH (21:37)
[2024-08-28] MEDS: Clopidogrel Bisulfate 75 MG TAB PO SCH (21:37)
[2024-08-28] MEDS: traMADol HCl 50 MG TAB PO PRN (21:38)
[2024-08-28] MEDS: Ipratropium/Albuterol 3 ML NEB NEB PRN (22:09)
[2024-08-29 04:28] LABS: #Basophils 0.05 10x3/uL (0.0-0.2); %Basophils 0.5 % (0.0-1.0); %Eosinophils 1.8 % (0.0-10.0); %Lymphocytes 14.7 % (21.0-51.0); %Monocytes 6.8 % (0.0-10.0); %Neutrophils 75.7 % (42.0-75.0); Hematocrit 31.7 % (36.0-47.0); Hemoglobin 10.9 g/dL (12.0-16.0); Mean Corpuscular HGB CONC 34.4 g/dL (32.0-36.0); Mean Corpuscular Hemoglobin 29.5 pg (27.0-31.0); Mean Corpuscular Volume 85.7 fL (78.0-98.0); Mean Platelet Volume 11.3 fL (7.4-10.4); Platelet Count 107 10x3/uL (130-400); RBC Distribution Width 12.2 % (11.5-14.5)
[2024-08-29 04:37] LABS: Anion Gap 12 mmol/L (10-20); BUN (Urea Nitrogen) 16 mg/dL (9.8-20.1); Calc. Creatinine Clearance 53 mL/min (70-130); Calcium 8.4 mg/dL (7.8-10.44); Carbon Dioxide 23 mmol/L (23-31); Chloride 106 mmol/L (98-107); Estimated GFR 50; Glucose 105 mg/dL (83-110); Magnesium 1.9 mg/dL (1.6-2.6); Potassium 3.5 mmol/L (3.5-5.1); Sodium 137 mmol/L (136-145)
[2024-08-29 09:39] VITALS: TEMP 99.8
[2024-08-29 15:47] VITALS: BP 175/77
[2024-08-31 00:36] LABS: Mycoplasma pneumoniae IgG AB 284 U/mL (0-99); Mycoplasma pneumoniae IgM AB Less than 770 U/mL (0-769)
== END 2024-08-29 17:31 | disposition home health service (06) | DRG 871 ==
LOC: SUATTDRO 15:13 → ERS 15:13 → 2NO 17:48
PROVIDERS: ADMIT Family Medicine; ATTEND Internal Medicine
DX: A41.9 Sepsis, unspecified organism (principal); J18.9 Pneumonia, unspecified organism; J96.01 Acute respiratory failure with hypoxia; I16.1 Hypertensive emergency; I5A Non-ischemic myocardial injury (non-traumatic); I48.91 Unspecified atrial fibrillation; I10 Essential (primary) hypertension; E11.9 Type 2 diabetes mellitus without complications; F10.90 Alcohol use, unspecified, uncomplicated; I49.5 Sick sinus syndrome; Z95.0 Presence of cardiac pacemaker; Z88.8 Allergy status to other drugs, medicaments and biological substances; Z90.49 Acquired absence of other specified parts of digestive tract; Z90.79 Acquired absence of other genital organ(s); Z98.890 Other specified postprocedural states; Z79.82 Long term (current) use of aspirin; Z79.899 Other long term (current) drug therapy; Z01.818 Encounter for other preprocedural examination
CPT/HCPCS: 36415; 36416; 70490; 71045; 71046; 71250; 80048; 80053; 80061; 80076; 80202; 82805; 83036; 83605; 83735; 83880; 84443; 84484; 85025; 87040; 87081; 87428; 87449; 87899; 93005; 94640; 94660; 94760; 96365; J0360; J0692; J1650; J1815; J1885; J2543; J3370; J3475; J3490; J7030; J7620

== ENCOUNTER 2025-03-02 08:17 | Outpatient (CLI) | payer MEDICARE | END 2025-03-02 08:18 | disposition home or self-care (01) | LOC: ULT 08:17 | PROVIDERS: ATTEND Internal Medicine Cardiovascular Disease | DX: G45.9 Transient cerebral ischemic attack, unspecified (principal) | CPT/HCPCS: 93880 ==